=== PATIENT | female | born 2005 | race Caucasian/White ===

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

== ENCOUNTER 2023-01-13 16:55 | Emergency (ER) | payer OTHER, SELFPAY ==
--- NOTE | 2023-01-13 17:00 | ED.URI ---
HPI - URI/Sore Throat General Chief Complaint: Upper Respiratory Infection Stated Complaint: soree throat Time Seen by Provider: 01/13/23 17:35 Source: patient and RN notes reviewed Mode of arrival: ambulatory Limitations: no limitations History of Present Illness HPI Narrative: 17-year-old female presents with concern for sore throat, left ear pain, left wisdom tooth pain. She reports symptoms for approximately 1 week, she has been using salt water gargles and taking ibuprofen. She reports she has an appointment with her dentist to evaluate her wisdom teeth. She reports she has purulent drainage around her left lower wisdom tooth MD elicited complaint: cough and sore throat Related Data Home Medications Medication Instructions Recorded Confirmed levonorgestrel-ethinyl estradiol 1 tablet PO DAILY 01/13/23 01/13/23 0.1 mg-20 mcg tablet (Vienva) magnesium oxide 400 mg (241.3 mg 400 mg PO DAILY 01/13/23 01/13/23 magnesium) tablet pantoprazole 40 mg tablet,delayed 40 mg PO DAILY 01/13/23 01/13/23 release Allergies Allergy/AdvReac Type Severity Reaction Status Date / Time Penicillins Allergy Mild Hives / Verified 01/13/23 17:05 Red Face Review of Systems Review of Systems: CONSTITUTIONAL: Denies malaise, chills, sweats, or fever. EYES: Denies visual changes, redness, or discharge. ENT: Denies rhinorrhea, congestion, sinus pain. Reports left lower dental pain, otalgia and sore throat. CARDIOVASCULAR: Denies chest pain, palpitations, or edema. RESPIRATORY: Denies cough. Denies dyspnea. GASTROINTESTINAL: Denies abdominal pain, nausea, vomiting, diarrhea SKIN: Denies rash or itching. MUSCULOSKELETAL: Denies myalgia. NEUROLOGIC: Denies headache. 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 There is no relevant family history pertinent to the presenting complaint Exam Narrative: GENERAL: Well-appearing, well-nourished, and in no acute distress. HEAD: Normocephalic EYES: PERRLA, conjunctivae clear ENT: Nares clear, no discharge. Mucous membranes moist. TM pearly lassiter with sharp light reflex bilaterally; no tragal tenderness. Oropharynx not erythematous without lesions. Tonsils not enlarged and without exudate, no drooling, no hoarseness, no trismus, uvula midline. gums surrounding tooth 17 erythematous, edematous with purulent drainage noted, no jaw tenderness. NECK: Supple. No lymphadenopathy CHEST: Clear to auscultation, breath sounds equal. No wheezing, rhonchi, rales, or stridor. No respiratory distress, speaks in full sentences. HEART: Regular rate and rhythm. No murmur heard. SKIN: Warm, dry, no rash. NEURO: Alert and oriented x3. PSYCH: Normal mood and affect Course Course Emergency Course: Patient is aware of diagnosis, understands and agrees to treatment plan. Anticipatory guidance given. Patient agrees to follow-up as directed and is aware of reasons to seek care at t
[2023-01-13 17:02] VITALS: BP 125/46; PULSE 93; RESP 20; TEMP 36.8; O2SAT 100
[2023-01-13 17:06] VITALS: BP 125/46; PULSE 93; RESP 20; TEMP 36.8; O2SAT 100
== END 2023-01-13 17:49 | disposition home or self-care (01) ==
PROVIDERS: Emergency Provider Nurse Practitioner; PCP Family Medicine
DX: K04.7 Periapical abscess without sinus (principal); J45.909 Unspecified asthma, uncomplicated
CPT/HCPCS: 87081; 87880; 99213; G0463

== ENCOUNTER 2023-05-12 23:42 | Emergency (ER) | payer OTHER, SELFPAY ==
--- NOTE | ~2023-05-12 | XR_ITS ---
Portable chest x-ray Comparison: 11/12/2022 Clinical History: Chest pain Findings: Lungs are clear, without focal consolidation or pleural effusion. Cardiomediastinal silho uette is stable. Bones and soft tissues are unremarkable. Impression: Normal chest. Reviewed, dictated and finalized at [facility]. Impression: Normal chest.
[2023-05-12 23:45] VITALS: BP 141/67; PULSE 110; RESP 16; TEMP 36.4; O2SAT 100
--- NOTE | 2023-05-12 23:49 | ECG_ITS ---
Measurements Intervals [place] Rate: 103 P: 19 WV: 136 QRS: 67 QRSD: 97 T: 50 QT: 326 QTc: 428 Interpretive Statements SINUS TACHYCARDIA INCOMPLETE RIGHT BUNDLE BRANCH BLOCK MINIMAL Q WAVES- ANTEROLAT/INF LEADS BORDERLINE ECG COMPARED TO ECG 11/12/2022 18:51:03 SINUS TACHYCARDIA NOW PRESENT Electronically Signed On 05-13-2023 7:42:18 CDT by Syed Cullen D.O.
[2023-05-13 01:06] VITALS: BP 137/69; PULSE 88
--- NOTE | 2023-05-13 01:10 | ED.GENADULT ---
HPI - General Adult General Chief complaint: Arrhythmia/Palpitations Stated complaint: palpitaions Time Seen by Provider: 05/13/23 00:39 History of Present Illness HPI narrative: Patient 18-year-old female who presents the emergency department with chief complaint of palpitations and chest pain. The patient reports that she has been having episodes of palpitations and lightheadedness and feels as though her heart rate jumps up into the 1 teens 120s and sometimes in the 130s the patient states that she gets lightheaded and is also had some episodes of chest pain with this the patient reports she has seen her primary care provider has been referred to cardiology and they are planning on referring her to electrophysiology to evaluate for possible POTS patient reports that today she was feeling lightheaded and noticed that her heart rate at times was jumping up into the 120s and 140s the patient states that she became concerned when she had some discomfort in her chest with this and decided to come to the emergency department for evaluation patient reports no heavy vaginal bleeding denies vomiting or diarrhea patient reports that she does not believe that she is dehydrated as she drinks a fair amount of water patient reports that she is having no abdominal pain Related Data Home Medications Medication Instructions Recorded Confirmed levonorgestrel-ethinyl estradiol 1 tablet PO DAILY 01/13/23 02/14/23 0.1 mg-20 mcg tablet (Vienva) magnesium oxide 400 mg (241.3 mg 400 mg PO DAILY 01/13/23 02/14/23 magnesium) tablet pantoprazole 40 mg tablet,delayed 40 mg PO DAILY 01/13/23 02/14/23 release Allergies Allergy/AdvReac Type Severity Reaction Status Date / Time Penicillins Allergy Mild Hives / Verified 05/13/23 00:37 Red Face Review of Systems Review of Systems: A 10 system review of systems was completed on the patient and is negative except for what is stated in the HPI. Nursing and ancillary documentation was reviewed. 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 HEAD: Normocephalic, atraumatic. EYES: PERRLA and EOMI. ENT: Nares clear, no rhinorrhea or epistaxis. Mucous membranes moist. NECK: Supple. CHEST: Clear to auscultation. No respiratory distress. HEART: Regular rate and rhythm. No murmur heard. Normal peripheral pulses. ABDOMEN: Soft, nontender, nondistended, normal active bowel sounds. EXTREMITIES: Normal range of motion. No edema. SKIN: Warm, dry, no rash. NEURO: No focal deficits. Alert and oriented x3. PSYCH: Normal mood and affect. Course Vital Signs Vital signs: Vital Signs Temperature 36.4 C 05/12/23 23:45 Pulse Rate 110 H 05/12/23 23:45 Respiratory Rate 16 05/12/23 23:45 Blood Pressure 141/67 H 05/12/23 23:45 Pulse Oximetry 100 05/12/23 23:45 Oxygen Delivery Room Air 05/12/23 23:45 Temperature 36.4 C 05/12/23 23:45 Pulse Rate 81 05/13
[2023-05-13 01:57] LABS: Appearance Urine Cloudy (Clear); Bacteria Urine Rare /hpf; Bilirubin Urine Negative (Negative); Blood Urine Negative (Negative); Color Urine Yellow (Yellow); Glucose Urine UA Negative (Negative); Ketones Urine Negative (Negative); Leukocyte Esterase Ur Negative LEU/UL (Negative); Nitrate Urine Negative (Negative); Non Pathogenic Casts 0-2; Protein Urine Negative (Negative); RBC Urine 0-2 /hpf (0-2); Specific Grav Ur 1.015 (1.001-1.035); Squamous Epithelial Cell Urine None seen /hpf (Few); Urobilinogen Urine 0.2 mg/dL (<2.0); WBC Urine 0-5 /hpf; pH Urine 7.5 (5.0-9.0)
[2023-05-13] MEDS: SODIUM CHLORIDE 0.9% IV 1,000 ML 999 ML IV CONT (02:00)
[2023-05-13 02:04] LABS: INR 0.9; Prothrombin Time 12.5 Seconds (11.1-14.7)
[2023-05-13 02:07] VITALS: BP 139/71; PULSE 89; RESP 16; O2SAT 100
[2023-05-13 02:07] LABS: Amphetamine Screen Urine Negative (Negative); Barbiturate Screen Urine Negative (Negative); Benzodiazepines Screen Urine Negative (Negative); Cannabinoid Screen Urine Negative (Negative); Cocaine Screen Urine Negative (Negative); Methadone Screen Urine Negative (Negative); Opiate Screen Urine Negative (Negative); Phencyclidine Screen Urine Negative (Negative)
[2023-05-13 02:11] LABS: Add Urine Microscopic? YES
[2023-05-13 02:12] LABS: Basophils Absolute Auto 0.1 K/mm3 (0.0-0.1); Basophils Percent Auto 0.4 % (0.2-1.2); Eosinophils Absolute Auto 0.3 K/mm3 (0-0.3); Eosinophils Percent Auto 2.9 % (0-4.4); Hematocrit 39.5 % (37.0-47.0); Hemoglobin 12.8 g/dL (12.0-15.0); Immature Granulocyte Absolute 0.03 K/mm3 (0.00-0.031); Immature Granulocyte Percent A 0.3 % (0-0.5); Lymphocytes Absolute Auto 3.17 K/mm3 (0.9-3.2); Lymphocytes Percent Auto 27.8 % (18.3-44.2); Mean Corpuscular HGB Conc 32.4 g/dl (32-36); Mean Corpuscular Hemoglobin 28.8 pg (26-34); Mean Corpuscular Volume 88.8 fl (80-100); Mean Platelet Volume 10.6 fl (7.4-10.4); Monocytes Absolute Auto 0.9 K/mm3 (0.1-0.6); Monocytes Percent Auto 7.8 % (2.6-8.5); Neutrophils Absolute Auto 6.9 K/mm3 (1.3-6.7); Neutrophils Percent Auto 60.8 % (45.5-73.1); Platelet Count Result 320 k/mm3 (150-375); Red Blood Count 4.45 M/mm3 (4.2-5.4); Red Cell Distribution Width 13.1 % (11.5-14.5); White Blood Count 11.4 K/mm3 (4.5-10.0)
[2023-05-13 02:17] LABS: Partial Thromboplastin Time 24.4 SECONDS (22.3-36.8)
[2023-05-13 02:22] LABS: Lactic Acid Reflex 0.8 mmol/L (0.7-2.0)
[2023-05-13 02:23] VITALS: PULSE 93; RESP 21; O2SAT 100
[2023-05-13 02:29] LABS: Alanine Aminotransferase 21 U/L (6-35); Albumin Level 4.4 g/dL (3.5-5.1); Alkaline Phosphatase 78 U/L (38-126); Anion Gap 6 mmol/L (8-16); Aspartate Amino Transferase 27 U/L (14-36); Bilirubin,Total 0.6 mg/dL (0.2-1.3); Blood Urea Nitrogen 13 mg/dL (7-17); Calcium 9.1 mg/dL (8.4-10.2); Carbon Dioxide 27 mmol/L (22-30); Chloride 103 mmol/L (98-107); Estimated CRCL calculation 146 ml/min; Estimated Glomerular Filt Rate > 60; Glucose 96 mg/dL (65-110); Magnesium 1.9 mg/dL (1.6-2.3); Potassium 4.1 mmol/L (3.4-5.0); Sodium 136 mmol/L (137-145)
[2023-05-13 02:32] LABS: Beta HCG Quantitative < 2.39 mIU/ML
[2023-05-13 02:33] LABS: Troponin I < 0.012 ng/mL (0.000-0.034)
[2023-05-13 02:39] VITALS: BP 141/74; PULSE 80
[2023-05-13 02:41] VITALS: BP 147/70; PULSE 81
[2023-05-13 03:48] VITALS: BP 132/89; PULSE 94; RESP 22; TEMP 36.7; O2SAT 100
== END 2023-05-13 03:49 | disposition home or self-care (01) ==
PROVIDERS: Emergency Provider Emergency Medicine; PCP Family Medicine
DX: R07.89 Other chest pain (principal); R00.2 Palpitations; J45.909 Unspecified asthma, uncomplicated; R00.0 Tachycardia, unspecified; I45.10 Unspecified right bundle-branch block
CPT/HCPCS: 36415; 71045; 80053; 80307; 81001; 83605; 83735; 84484; 84702; 85025; 85610; 85730; 93005; 96360; 99284; J7030

== ENCOUNTER 2023-05-25 10:50 | Outpatient (CLI) | payer OTHER, SELFPAY ==
[2023-05-25 11:07] LABS: Basophils Absolute Auto 0.1 K/mm3 (0.0-0.1); Basophils Percent Auto 0.6 % (0.2-1.2); Eosinophils Absolute Auto 0.2 K/mm3 (0-0.3); Hematocrit 39.7 % (37.0-47.0); Hemoglobin 12.7 g/dL (12.0-15.0); Immature Granulocyte Absolute 0.02 K/mm3 (0.00-0.031); Immature Granulocyte Percent A 0.2 % (0-0.5); Lymphocytes Absolute Auto 2.11 K/mm3 (0.9-3.2); Lymphocytes Percent Auto 24.6 % (18.3-44.2); Mean Corpuscular Hemoglobin 28.8 pg (26-34); Mean Platelet Volume 10.4 fl (7.4-10.4); Monocytes Absolute Auto 0.6 K/mm3 (0.1-0.6); Monocytes Percent Auto 7.2 % (2.6-8.5); Neutrophils Absolute Auto 5.6 K/mm3 (1.3-6.7); Neutrophils Percent Auto 65.4 % (45.5-73.1); Platelet Count Result 285 k/mm3 (150-375); Red Blood Count 4.41 M/mm3 (4.2-5.4); Red Cell Distribution Width 12.6 % (11.5-14.5); White Blood Count 8.6 K/mm3 (4.5-10.0)
[2023-05-25 15:39] LABS: Potassium 3.9 mmol/L (3.4-5.0)
[2023-05-25 15:44] LABS: Alanine Aminotransferase 20 U/L (6-35); Albumin Level 4.6 g/dL (3.5-5.1); Alkaline Phosphatase 81 U/L (38-126); Anion Gap 8 mmol/L (8-16); Aspartate Amino Transferase 20 U/L (14-36); Bilirubin,Total 0.3 mg/dL (0.2-1.3); Blood Urea Nitrogen 8 mg/dL (7-17); CRP 0.8 mg/dL (<1.0); Calcium 9.1 mg/dL (8.4-10.2); Carbon Dioxide 24 mmol/L (22-30); Chloride 102 mmol/L (98-107); Estimated Glomerular Filt Rate > 60; Glucose 89 mg/dL (65-110); Sodium 134 mmol/L (137-145)
[2023-05-25 16:40] LABS: Erythrocyte Sedimentation Rate 15 mm/hr (0-20)
== END 2023-05-25 10:51 | disposition home or self-care (01) ==
LOC: ANHLAB 10:54
PROVIDERS: PCP Family Medicine; Visit Provider Internal Medicine Hematology & Oncology
DX: D72.829 Elevated white blood cell count, unspecified (principal)
CPT/HCPCS: 36415; 80053; 85025; 85652; 86140

== ENCOUNTER 2023-06-03 14:14 | Outpatient (CLI) | payer OTHER, SELFPAY | END 2023-06-03 14:15 | disposition home or self-care (01) | LOC: ANHLAB 14:16 | PROVIDERS: PCP Family Medicine; Visit Provider Internal Medicine Hematology & Oncology | DX: D72.829 Elevated white blood cell count, unspecified (principal) | CPT/HCPCS: 88184 ==

== ENCOUNTER 2023-12-07 15:05 | Emergency (ER) | payer OTHER, SELFPAY ==
--- NOTE | ~2023-12-07 | XR_ITS ---
EXAMINATION: XR ankle RT min 3V DATE: 12/07/2023 15:27 INDICATION: Right ankle injury TECHNIQUE: Anteroposterior, oblique, mortise, and lateral views of the right ankle were obtained. COMPARISON: None. FINDINGS: Alignment is normal. No fracture. Joint spaces are well maintained. No ankle joint effusion. The so ft tissues are unremarkable. IMPRESSION: 1. Negative right ankle radiographs. Reviewed, dictated and finalized at location A. S TRANSFER CLERK
[2023-12-07 15:06] VITALS: BP 140/65; PULSE 112; RESP 16; TEMP 37; O2SAT 100
--- NOTE | 2023-12-07 16:23 | ED.LOWEXIN ---
HPI - Extremity Injury (Lower) General Chief Complaint: Extremity Injury, Lower Stated Complaint: right ankle injury Time Seen by Provider: 12/07/23 15:55 History of Present Illness HPI Narrative: Patient is a 18-year-old female who presents ER with right ankle pain. Lateral aspect. Suffered inversion injury while slipping down some stairs. She felt and heard a pop. She has been able to bear weight. No numbness or tingling. Related Data Home Medications Medication Instructions Recorded Confirmed magnesium oxide 400 mg (241.3 mg 400 mg PO DAILY 01/13/23 11/29/23 magnesium) tablet pantoprazole 40 mg tablet,delayed 40 mg PO DAILY 01/13/23 11/29/23 release etonogestrel 68 mg subdermal 1 implant subdermal ONCE 06/23/23 11/29/23 implant (Nexplanon) Allergies Allergy/AdvReac Type Severity Reaction Status Date / Time Penicillins Allergy Mild Hives / Verified 12/07/23 15:53 Red Face Review of Systems Constitutional: Constitutional: Reports no additional constitutional complaints Musculoskeletal: Musculoskeletal: Denies back pain, Reports arthralgias and Reports joint swelling Integumentary/Breasts: Skin/Breast: Reports system reviewed and no additional complaints, except as docu Neurologic: Reports system reviewed and no additional complaints, except as documented [facility] Past Medical History Medical History Asthma Confirm cardiac activity, ultrasound Nexplanon insertion 06/23/2023 Vaginal irritation Surgical History Surgical History No pertinent past surgical history Family History Family History Mother Anemia Other Cerebrovascular accident No acute medical problems Social History Social History (Updated 11/29/23 @ 15:43 by Shraddha Monterroso MA) Smoking status: Never smoker Alcohol intake: never Substance use: never Substance use type: does not use Do You Feel Safe in your Home?: Yes Lack of Transportation: No Lack of Food: Never True Current Housing: I Have Housing Concerned About Future Housing: No Difficulty Paying Gas/Electric Bills: No Difficulty Paying for Meds: No Currently Unemployed: No Education: High School Diploma/GED Difficulty w/ Childcare or Family Care: No Living arrangements: with family Occupation/Education: occupation 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 HEAD: Normocephalic, atraumatic. ENT: Mucous membranes moist. HEART: Regular rate and rhythm. Normal peripheral pulses.. EXTREMITIES: Normal range of motion. No edema. Mild tenderness over the ATFL of the right ankle. There is swelling and bruising to this area as well. SKIN: Warm, dry, no rash. NEURO: Alert and oriented x3. PSYCH: Normal mood and affect. Course Course Emergency Course: Discussed imaging results. Discharged with Esau wrap and crutches. Discussed rest/ice/compression /elevation. Weightbearing as tolerated Vital Signs Vital signs: Vital Signs Temperature 98.6 F 12/07/23 15:06 Pulse Rate 112 H 12/07/23 15:06 Respiratory Rate 16 12/07/23 15:06 Blood Pressure 140/65 12/07/23 15:06 Pulse Oximetry 100 12/07/23 15:06 Temperature 98.6 F 12/07/23 15:06 Pulse Rate 112 H 12/07/23 15:06 Respiratory Rate 16 12/07/23 15:06 Blood Pressure 140/65 12/07/23 15:06 Pulse Oximetry 100 12/07/23 15:06 Discharge Plan Discharge Clinical Impression: Ankle sprain Patient Disposition: Home, Self-Care Condition: Stable Instructions: Ankle Sprain (ED), P.R.I.C.E. Treatment (ED) Additi
== END 2023-12-07 16:36 | disposition home or self-care (01) ==
PROVIDERS: Emergency Provider Emergency Medicine; PCP Family Medicine
DX: S93.401A Sprain of unspecified ligament of right ankle, initial encounter (principal); J45.909 Unspecified asthma, uncomplicated; W18.49XA Other slipping, tripping and stumbling without falling, initial encounter
CPT/HCPCS: 73610; 99283

== ENCOUNTER 2023-12-15 12:45 | Emergency (ER) | payer OTHER, SELFPAY ==
[2023-12-15 12:55] VITALS: BP 143/62; PULSE 103; RESP 18; TEMP 36.8; O2SAT 98
--- NOTE | 2023-12-15 13:19 | ED.LOWEXIN ---
HPI - Extremity Injury (Lower) General Chief Complaint: Extremity Injury, Lower Stated Complaint: Right Ankle Pain Time Seen by Provider: 12/15/23 13:12 Source: patient, RN notes reviewed and old records reviewed Mode of arrival: other (With crutches) Limitations: no limitations History of Present Illness HPI Narrative: Patient presents today complaining of right ankle pain. She has sprained her ankle on 12/07/2023 and was subsequently seen in the ER at [facility]. Her x-rays were negative for fracture and she was instructed to follow-up with her PCP in 1 week. She has been using crutches since that time and very occasionally taking ibuprofen. She was supposed to have an appointment with a PCP today, but they called this morning canceled her appointment and did not reschedule her. Related Data Home Medications Medication Instructions Recorded Confirmed escitalopram oxalate 10 mg tablet 10 mg DIRECTED 12/15/23 12/15/23 metoprolol succinate 25 mg 25 mg PO DIRECTED 12/15/23 12/15/23 tablet,extended release 24 hr norethindrone 1 mg-ethinyl 1 tablet PO DAILY 12/15/23 12/15/23 estradiol 20 mcg (24)-iron 75 mg (4) tablet () Allergies Allergy/AdvReac Type Severity Reaction Status Date / Time Penicillins Allergy Mild Hives / Verified 12/07/23 15:53 Red Face Review of Systems Review of Systems: CONSTITUTIONAL: Denies body aches, fever, chills, or sweats. EYES: Denies visual changes, redness, or discharge. ENT: Denies rhinorrhea, congestion, sore throat, or otalgia. CARDIOVASCULAR: Denies chest pain, palpitations, or edema. RESPIRATORY: Denies cough or dyspnea. GASTROINTESTINAL: Denies abdominal pain, nausea, vomiting, or diarrhea. GENITOURINARY: Denies dysuria or hematuria. SKIN: Denies rash, itching, or wounds. MUSCULOSKELETAL: Denies back pain, or myalgia.+ right ankle pain NEUROLOGIC: Denies headache, numbness, tingling, or weakness. PSYCH: Denies depression or anxiety. [facility] Past Medical History Medical History Asthma Confirm cardiac activity, ultrasound Nexplanon insertion 06/23/2023 Vaginal irritation Surgical History Surgical History No pertinent past surgical history Family History Family History Mother Anemia Other Cerebrovascular accident No acute medical problems Social History Social History Smoking status: Never smoker Alcohol intake: never Substance use: never Substance use type: does not use Do You Feel Safe in your Home?: Yes Lack of Transportation: No Lack of Food: Never True Current Housing: I Have Housing Concerned About Future Housing: No Difficulty Paying Gas/Electric Bills: No Difficulty Paying for Meds: No Currently Unemployed: No Education: High School Diploma/GED Difficulty w/ Childcare or Family Care: No Living arrangements: with family Occupation/Education: occupation 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 Please see nursing chart for further information. There is no relevant family history pertinent to the presenting complaint Exam Narrative: GENERAL: Well-appearing, well-nourished, and in no acute distress. HEAD: Normocephalic, atraumatic. EYES: EOMI. No redness or drainage. Conjunctivae normal. ENT: Mucous membranes pink and moist. NECK: Normal AROM. CHEST: No respiratory distress. EXTREMITIES: Right ankle: Mi
== END 2023-12-15 13:29 | disposition home or self-care (01) ==
PROVIDERS: Emergency Provider Nurse Practitioner; PCP Family Medicine
DX: S93.401D Sprain of unspecified ligament of right ankle, subsequent encounter (principal); X58.XXXD Exposure to other specified factors, subsequent encounter; J45.909 Unspecified asthma, uncomplicated
CPT/HCPCS: 99212; G0463

== ENCOUNTER 2024-05-29 11:27 | Outpatient (CLI) | payer OTHER, SELFPAY ==
[2024-05-29 11:51] LABS: Basophils Absolute Auto 0.1 K/mm3 (0.0-0.1); Basophils Percent Auto 0.5 % (0.2-1.2); Eosinophils Absolute Auto 0.4 K/mm3 (0-0.3); Eosinophils Percent Auto 3.4 % (0-4.4); Hematocrit 38.5 % (37.0-47.0); Hemoglobin 12.7 g/dL (12.0-15.0); Immature Granulocyte Absolute 0.04 K/mm3 (0.00-0.031); Immature Granulocyte Percent A 0.4 % (0-0.5); Lymphocytes Absolute Auto 2.22 K/mm3 (0.9-3.2); Lymphocytes Percent Auto 19.9 % (18.3-44.2); Mean Corpuscular Hemoglobin 29.6 pg (26-34); Mean Corpuscular Volume 89.7 fl (80-100); Mean Platelet Volume 10.1 fl (7.4-10.4); Monocytes Absolute Auto 0.8 K/mm3 (0.1-0.6); Monocytes Percent Auto 6.7 % (2.6-8.5); Neutrophils Absolute Auto 7.7 K/mm3 (1.3-6.7); Neutrophils Percent Auto 69.1 % (45.5-73.1); Platelet Count Result 287 k/mm3 (150-375); Red Blood Count 4.29 M/mm3 (4.2-5.4); White Blood Count 11.1 K/mm3 (4.5-10.0)
[2024-05-29 12:06] LABS: Alanine Aminotransferase 16 U/L (6-35); Albumin Level 4.1 g/dL (3.5-5.1); Alkaline Phosphatase 72 U/L (38-126); Anion Gap 8 mmol/L (4-12); Aspartate Amino Transferase 19 U/L (14-36); Bilirubin,Total 0.2 mg/dL (0.2-1.3); Blood Urea Nitrogen 9 mg/dL (7-17); Calcium 8.7 mg/dL (8.4-10.2); Carbon Dioxide 27 mmol/L (22-30); Chloride 102 mmol/L (98-107); Estimated Glomerular Filt Rate > 60; Glucose 105 mg/dL (65-110); Potassium 3.8 mmol/L (3.4-5.0); Sodium 137 mmol/L (137-145)
[2024-05-29 12:28] LABS: Free T4 Free Thyroxine 1.02 ng/mL (0.78-2.19)
[2024-05-29 12:36] LABS: Total Triiodothyronine (T3) 1.43 NG/ML (0.97-1.69)
[2024-05-31 08:09] LABS: Thyroid Peroxidase Antibodies <1 IU/mL (<9)
== END 2024-05-29 11:28 | disposition home or self-care (01) ==
LOC: ANHLAB 11:30
PROVIDERS: PCP Family Medicine; Visit Provider Family Medicine
DX: Z00.00 Encounter for general adult medical examination without abnormal findings (principal); E07.9 Disorder of thyroid, unspecified; F41.1 Generalized anxiety disorder
CPT/HCPCS: 36415; 80053; 84439; 84443; 84480; 85025; 86376

== ENCOUNTER 2024-06-29 18:38 | Emergency (ER) | payer OTHER, SELFPAY ==
[2024-06-29 18:46] VITALS: BP 124/50; PULSE 82; RESP 19; TEMP 36.8; O2SAT 100
--- NOTE | 2024-06-29 19:00 | ED.URI ---
HPI - URI/Sore Throat General Chief Complaint: Upper Respiratory Infection Stated Complaint: Sinus Time Seen by Provider: 06/29/24 19:01 Source: patient, RN notes reviewed and old records reviewed Mode of arrival: ambulatory Limitations: no limitations History of Present Illness HPI Narrative: 19-year-old female presents to the [facility] with a 4 day history of sinus congestion, feeling feverish, sore throat. No treatment prior to arrival requesting a work note. Concern for flu, COVID and strep Treatments prior to arrival: none Related Data Home Medications Medication Instructions Recorded Confirmed escitalopram oxalate 10 mg tablet 10 mg DIRECTED 12/15/23 06/29/24 clonazepam 1 mg tablet 1 mg PO DAILY 05/29/24 06/29/24 norethindrone 1 mg-ethinyl 1 tablet PO DAILY 05/29/24 06/29/24 estradiol 20 mcg (24)-iron 75 mg (4) tablet (Aurovela 24 Fe) metoprolol succinate 25 mg 25 mg PO DAILY 06/29/24 06/29/24 tablet,extended release 24 hr Allergies Allergy/AdvReac Type Severity Reaction Status Date / Time Penicillins Allergy Mild Hives / Verified 06/29/24 18:45 Red Face Review of Systems Review of Systems: All systems reviewed & are unremarkable except as noted in HPI and below Constitutional: Constitutional: Reports no additional constitutional complaints Eyes: Eyes: Reports no additional eye complaints ENT: Reports as per HPI Cardiovascular: Cardiovascular: Reports no additional cardiovascular complaints, Denies chest pain and Denies dyspnea Respiratory: Respiratory: Reports no additional respiratory complaints, Denies chest congestion, Denies cough and Denies dyspnea Gastrointestinal: Gastrointestinal: Reports no additional gastrointestinal complaints, Denies abdominal pain, Denies nausea and Denies vomiting Musculoskeletal: Musculoskeletal: Reports no additional musculoskeletal complaints Integumentary/Breasts: Skin/Breast: Reports system reviewed and no additional complaints, except as docu Neurologic: Reports system reviewed and no additional complaints, except as documented Psychiatric: Psychiatric: Reports no additional psychiatric complaints Allergic/Immunologic: Allergic/Immunologic: Reports no additional allergic/immunologic complaints PMFSH Past Medical History Medical History Asthma Confirm cardiac activity, ultrasound Nexplanon insertion 06/23/2023 Vaginal irritation Surgical History Surgical History No pertinent past surgical history Family History Family History Mother Anemia Other Cerebrovascular accident No acute medical problems Social History Social History Social History: Single Smoking status: Never smoker Second hand tobacco smoke exposure: No Alcohol intake: current Alcohol use details: Occasionally Substance use: never Substance use type: does not use Do You Feel Safe in your Home?: Yes Lack of Transportation: No Lack of Food: Never True Current Housing: I Have Housing Concerned About Future Housing: No Difficulty Paying Gas/Electric Bills: No Difficulty Paying for Meds: No Currently Unemployed: No Education: High School Diploma/GED Difficulty w/ Childcare or Family Care: No Living arrangements: with family Occupation/Education: occupation 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 There is no relevant family history pertinent to the patient complaint. Exam Const: General: cooperative, heal
[2024-06-29 19:35] LABS: EDCOVIDSCREEN Negative (Negative); EDINFLUASCREEN Negative (Negative); EDINFLUBSCREEN Negative (Negative); EDSTREPNEGPOS1 Negative (Negative)
== END 2024-06-29 19:30 | disposition home or self-care (01) ==
PROVIDERS: Emergency Provider Nurse Practitioner; PCP Family Medicine
DX: J06.9 Acute upper respiratory infection, unspecified (principal); Z20.822 Contact with and (suspected) exposure to COVID-19
CPT/HCPCS: 87081; 87635; 87804; 87880; 99213; G0463

== ENCOUNTER 2025-02-06 15:11 | Emergency (ER) | payer SELFPAY ==
[2025-02-06] VITALS (12 sets, daily range): BP systolic 116–139; BP diastolic 49–67; PULSE 70–88; RESP 13–18; TEMP 36.2; O2SAT 99–100
--- NOTE | ~2025-02-06 | XR_ITS ---
CHEST RADIOGRAPH CLINICAL HISTORY: pre-syncope, dyspnea . COMPARISON: 11/12/2022 TECHNIQUE: Single portable view of the chest. FINDINGS The cardiomediastinal silhouette is unremarkable. The lungs are clear. Visualized osseous structures and soft tissues are unremarkable. IMPRESSION: No focal infiltrate or effusion. Reviewed, dictated and finalized at location A.
--- NOTE | 2025-02-06 16:27 | ECG_ITS ---
Test Date: 2025-02-06 16:40:58 Measurements Intervals Korbel Rate: 76 P: 8 GA: 141 QRS: 68 QRSD: 97 T: 43 QT: 371 QTc: 419 Interpretive Statements SINUS RHYTHM INCOMPLETE RIGHT BUNDLE BRANCH BLOCK MINIMAL Q WAVES- ANTEROLAT/INF LEADS BASELINE WANDER- V3-V6 BORDERLINE ECG No previous ECG available for comparison Electronically Signed On 02-06-2025 17:19:08 CDT by Syed Cullen D.O.
--- OUTSIDE RECORDS SUMMARY | 2025-02-06 17:09 | XMS_ITS | CONTINUITY OF CARE DOCUMENT ---
Author Name wale echevarria Address Unknown Organization [facility] Address [address] [place] [address] Phone [phone] Care Team Providers Care Therapeutic Radiologist Name Role Phone Abdon VAZQUEZ, Chris Unavailable Blayne Diaz MD Unavailable [phone] INSURANCE PROVIDERS Payer name Policy type / Coverage type Rosa red green party ID [facility] Medicaid [id number]
--- OUTSIDE RECORDS SUMMARY | 2025-02-06 17:09 | XMS_ITS | Encounter Summary ---
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 Gender Identity Not on file Sexual Orientation Not on file documented as of this encounter Plan of Treatment Not on file documented as of this encounter Procedures Procedure Name Priority Date/Time Associated Diagnosis Comments SCAN - LABS 08/31/2021 CARDIOLOGY DOCUMENT SCAN 08/31/2021 documented in this encounter Results * SCAN - LABS (08/31/2021) us Provider Scanning Final Result * CARDIOLOGY DOCUMENT SCAN (08/31/2021) Anatomical Region Laterality Modality Other us Provider Scanning CV CARDIAC SERVICES PROCEDURES Final Result documented in this encounter Visit Diagnoses Not on filedocumented in this encounter Care Teams Manager Of School Relationship Specialty Start Date End Date Raffy Singh MD [address] [place] [id number] PCP - General Pediatrics 12/25/21 documented as of this encounter
--- OUTSIDE RECORDS SUMMARY | 2025-02-06 17:10 | XMS_ITS | Clinical Summary ---
Author Organization [facility] [employer] Address [address] [place] [address] Care Team Providers Care Adjunct Lecturer Name Role Phone Raffy Singh MD Primary Care Provider [phone] Raffy Singh MD Unavailable Source Comments [facility] [employer],non-owned Affiliates and Associated Physician Practices is amultiple site organization consisting of ambulatory clinics and hospital sitesin [place], [place], [place] and [place]. This disclosure is being madepursuant to the Care Everywhere program and may not contain all information available regarding this patient. Last updated 18.[facility] [employer] Allergies Active Allergy Reactions Criticality Noted Date Comments Penicillins 12/05/2012 Penicillins Rash Medium 12/10/2016 Medications * Be aware that medications may not be up to date on this document. Alwaysverify current medications with the patient. fluticasone hfa 110 (FLOVENT HFA) 110 MCG/ACT inhaler Inhale 2 Puffs by mouth 2 times daily Active ALBUTEROL IN Active cetirizine (ZYRTEC ALLERGY) 10 MG tablet Take 10 mg by mouth once daily Active predniSONE (DELTASONE) 20 MG tabletIndication s:Acute bronchitis, unspecified organism Take 1 Tab by mouth 2 times daily 14 Tab 12/01/2016 Active predniSONE (DELTASONE) 20 MG tablet Take 1 Tab by mouth 2 times daily 14 Tab 12/10/2016 Active ALBUTEROL IN Active Social History Tobacco Use Types Packs/Day Years Used Date Smoking Tobacco: Never Comments Unknown Sex and Gender Information Value Date Recorded Sex Assigned at Not on file Legal Sex Female 5:42 AM 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 Gender Identity Not on file Sexual Orientation Not on file Last Filed Vital Signs Vital Sign Reading Time Taken Comments Blood Pressure 106/62 12/10/2016 9:47 AM 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 ASSOCIATE Pulse 113 12/10/2016 9:47 AM 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 ASSOCIATE Temperature 38.3 C (100.9 F) 12/10/2016 9:47 AM 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 ASSOCIATE Respiratory Rate 17 12/01/2016 7:11 PM 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 ASSOCIATE Oxygen Saturation 97% 12/10/2016 9:47 AM 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 ASSOCIATE Inhaled Oxygen Concentration - - Weight 72.6 kg (160 lb) 12/10/2016 9:47 AM 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 ASSOCIATE Height 165.1 cm (5' 5 ) 12/10/2016 9:47 AM 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 ASSOCIATE Body Mass Index 26.63 12/10/2016 9:47 AM 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 ASSOCIATE Plan of Treatment Health Maintenance Due Date Last Done Comments HIV SCREENING 2018 HPV VACCINE (1 - 3-dose series) 2018 CHLAMYDIA/GONORRHEA SCREENING 2019 MENINGOCOCCAL (Group B) VACC INE SHARED DECISION-MAKING (1 of 2 - Standard) 2019 HEPATITIS C SCREENING 04/27/2021 DTAP/TDAP/TD VACCINES (1 - Tdap) 2022 HEPATITIS B VACCINE (1 of 3 - 19+ 3-dose series) 2022 COVID-19 VACCINE (1 - 2023-2 5 season) 2024 DEPRESSION SCREENING 10/17/2024 INFLUENZA VACCINE (Season Ended) 2025 ZOSTER VACCINE (1 of 2) 2053 HIB VACCINE Aged Out No longer eligi ble based on patient's age to complete this topic MENINGOCOCCAL GROUPS A/C/Y/W VACCINE Aged Out No longer eligible b ased on patient's age to complete this topic PNEUMOCOCCAL VACCINE Aged Out No long er eligible based on patient's age to complete this topic Insurance [facility] [employer] [facility] Care Teams Adjunct Lecturer Relationship Specialty Start Date End Date Raffy Singh MD [address] [place] [address] PCP - General Pediatrics 12/10/16 Raffy Singh MD [address] [place] [address] Pediatrics 12/10/16
--- OUTSIDE RECORDS SUMMARY | 2025-02-06 17:10 | XMS_ITS | Clinical Summary ---
Author Organization [facility] Address [address] [place] [address] Care Team Providers Care Blasting Coal Miner Name Role Phone Raffy Singh MD Primary Care Provider [phone] Allergies Active Allergy Reactions Criticality Noted Date Comments Penicillins Hives,Rash High 12/05/2012 Medications albuterol (PROAIR RESPICLICK) 90 mcg/actuation inhaler Inhale Active magnesium oxide 400 mg magnesium capsule Take 400 mg by mouth daily 30 capsule 11 02/08/2022 Active clonazePAM (KlonoPIN) 0.5 mg tablet Take 1 tablet (0.5 mg total) by mouth daily as needed 05/12/2023 Active Junel Fe 24 1 mg-20 mcg (24)/75 mg (4) per tablet Take 1 tablet by mouth daily 02/14/2023 Active cyanocobalamin (Vitamin B-12) 100 mcg tablet Take 1 tablet (100 mcg total) by mouth daily Active metoprolol XL (TOPROL-XL) 25 mg extended release tablet Take 0.5 tablets (12.5 mg total) by mouth every morning AND 1 tablet (25 mg total) nightly. (Please schedule follow up for future refills). 45 tablet 11/29/2024 Active Active Problems Problem Noted Date Diagnosed Date Postural orthostatic tachycardia syndrome 2022 Family History Medical History Relation Name Comments Asthma Other Family history of asthma - (Added by TW Conv) Diabetes Other Family history of diabetes mellitus - (Added by TW Conv) Heart disease Other Family history of cardiac disorder - (Added by TW Conv) Hypertension Other Family history of hypertension - (Added by TW Conv) Kidney disease Other Family histor y of kidney disease - (Added by TW Conv) Stroke Other Family history of cerebrovascular accident (CVA) - (Added by TW Conv) Relation Name Status Comments Other Social History Tobacco Use Types Packs/Day Years Used Date Smoking Tobacco: Never Tobacco Cessation:Counseling Given: Not Answered Personal Safety Answer Date Recorded Have you ever been in or are you currently in a harmful physical or emotional relationship or is someone making you feel afraid or unsafe? 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 Gender Identity Not on file Sexual Orientation Not on file Obstetrics History Last Filed Vital Signs Vital Sign Reading Time Taken Comments Blood Pressure 129/60 08/22/2023 6:15 PM LOCAL CITY DRIVER Pulse 103 08/22/2023 6:15 PM LOCAL CITY DRIVER Temperature 36.9 C (98.4 F) 08/22/2023 3:30 PM LOCAL CITY DRIVER Respiratory Rate 18 08/22/2023 6:15 PM LOCAL CITY DRIVER Oxygen Saturation 98% 08/22/2023 6:15 PM LOCAL CITY DRIVER Inhaled Oxygen Concentration - - Weight 89.9 kg (198 lb 3.1 oz) 08/22/2023 3:30 P M LOCAL CITY DRIVER Height 167.6 cm (5' 6 ) 08/22/2023 3:30 PM LOCAL CITY DRIVER Body Mass Index 31.99 08/22/2023 3:30 PM LOCAL CITY DRIVER Plan of Treatment Health Maintenance Due Date Last Done Comments Cervical Cancer Screening 2003 Depression Screening 2003 Hepatitis C Screening 2003 Pneumococcal vaccine <65 (1 of 1 - PPSV23) 2009 08/04/2004, 2003, 2003, Additional history exists Meningococcal B Vaccine (2 o f 2 - Bexsero SCDM 2-dose series) 01/11/2021 07/14/2020 Regular Well Visit/Exam 18-64 2021 DTaP/Tdap/Td Vaccine (7 - Td or Tdap) 04/30/2025 04/30/2015, 07/26/2008, 08/04/2004, Additional history exists Influenza Vaccine (Season Ended) 2025 08/09/2018, 07/06/2017, 07/06/2016, Additional history exists Hepatitis B Screening Completed 05/04/2004 , 2003, 2003, Additional history exists Varicella Vaccines Completed 07/26/2008, 08/04/2004 HPV Vaccines Completed 12/29/2015, 07/18, 04/30/2015 Meningococcal Vaccine Completed 07/14/2020, 015 Insurance [facility] Care Teams Blasting Coal Miner Relationship Specialty Start Date End Date Raffy Singh MD [address] [place] [address] (work) PCP - General Pediatrics 12/25/21
--- OUTSIDE RECORDS SUMMARY | 2025-02-06 17:10 | XMS_ITS | Referral Summary ---
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 Gender Identity Not on file Sexual Orientation Not on file Last Filed Vital Signs Vital Sign Reading Time Taken Comments Blood Pressure 129/60 08/22/2023 6:15 PM TABLE WORKER Pulse 103 08/22/2023 6:15 PM TABLE WORKER Temperature 36.9 C (98.4 F) 08/22/2023 3:30 PM TABLE WORKER Respiratory Rate 18 08/22/2023 6:15 PM TABLE WORKER Oxygen Saturation 98% 08/22/2023 6:15 PM TABLE WORKER Inhaled Oxygen Concentration - - Weight 89.9 kg (198 lb 3.1 oz) 08/22/2023 3:30 P M TABLE WORKER Height 167.6 cm (5' 6 ) 08/22/2023 3:30 PM TABLE WORKER Body Mass Index 31.99 08/22/2023 3:30 PM TABLE WORKER Plan of Treatment Not on file Insurance [facility] Care Teams Tool Pusher Relationship Specialty Start Date End Date Raffy Singh MD [address] [place] [id number] PCP - General Pediatrics 12/25/21
--- OUTSIDE RECORDS SUMMARY | 2025-02-06 17:10 | XMS_ITS | Encounter Summary ---
Author Organization [facility] Address [address] [place] [address] Phone Care Team Providers Care Motor Route Carrier Name Role Phone Raffy Singh MD Primary Care Provider [phone] Encounter Details Date Type Department Care Team (Latest Contact Info) Description 05/25/2023 Orders Only [facility] Lili Khanna, [address] [facility] [address] [place], [place] [id number] Social History Tobacco Use Types Packs/Day Years Used Date Smoking Tobacco: Never Comments Unknown Sex and Gender Information Value Date Recorded Sex Assigned at Not on file 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 Gender Identity Not on file Sexual Orientation Not on file documented as of this encounter Plan of Treatment Not on file documented as of this encounter Procedures Procedure Name Priority Date/Time Associated Diagnosis Comments SCAN - LABS 05/25/2023 documented in this encounter Results * SCAN - LABS (05/25/2023) Lili Khanna RN Final Result documented in this encounter Visit Diagnoses Not on filedocumented in this encounter Care Teams Motor Route Carrier Relationship Specialty Start Date End Date Raffy Singh MD [address] [place] [address] PCP - General Pediatrics 12/25/21 documented as of this encounter
--- OUTSIDE RECORDS SUMMARY | 2025-02-06 17:10 | XMS_ITS | Clinical Summary ---
Author Organization [facility] Address [address] [address] Care Team Providers Care Inlayer Silver Name Role Phone Janae Sullivan MD Primary Care Provider + Allergies Active Allergy Reactions Criticality Noted Date Comments Penicillins Hives,Rash High 12/05/2012 Medications albuterol sulfate 90 mcg/actuation metered powder inhaler Take by inhalation. Active clonazePAM (KlonoPIN) 0.5 mg Tablet Take 0.5 mg by mouth. 05/12/2023 Active Norethindrn A-E estradiol-Iron (Junel Fe 24) 1 mg-20 mcg (24)/75 mg (4) tablet Take 1 Tablet by mouth daily. 02/14/2023 Active cyanocobalamin (VITAMIN B-12) 100 mcg tablet Take 100 mcg by mouth daily. Active Active Problems No known active problems Family History Relation Name Status Comments Brother Alive Father Alive Mother Alive Sister Alive Social History Tobacco Use Types Packs/Day Years Used Date Smoking Tobacco: Never Smokeless Tobacco: Never Alcohol Use Standard Drinks/Week Comments Never 0 (1 standard drink = 0.6 oz pur e alcohol) Comments Unknown Sex and Gender Information Value Date Recorded Sex Assigned at Female 05/26/2023 11:34 AM CDT Legal Sex Female 10:50 AM CDT Gender Identity Female 05/26/2023 11:34 AM CDT Sexual Orientation Not on file Last Filed Vital Signs Vital Sign Reading Time Taken Comments Blood Pressure 136/73 05/25/2023 10:03 AM CDT Pulse 90 05/25/2023 10:03 AM CDT Temperature 36.2 C (97.1 F) 05/25/2023 10:03 AM CDT Respiratory Rate 10 05/25/2023 10:03 AM CDT Oxygen Saturation 100% 05/25/2023 10:03 AM CDT Inhaled Oxygen Concentration - - Weight 89.8 kg (198 lb) 05/25/2023 10:03 AM CDT Height 167.6 cm (5' 6 ) 05/25/2023 10:03 AM CDT Body Mass Index 31.96 05/25/2023 10:03 AM CDT Plan of Treatment Health Maintenance Due Date Last Done Comments CHLAMYDIA SCREENING (ANNUAL) 11-24 YEARS 2014 HPV VACCINES (1 - 3-dose series) 2018 DTAP/TDAP/TD VACCINES (1 - Tdap) 2022 HEPATITIS B VACCINES (1 of 3 - 19+ 3-dose series) 04/16 CERVICAL CANCER SCREENING 2024 HPV/Cotest (21-29) 2024 PAP SMEAR 2024 INFLUENZA VACCINE (#1) [address] [place] [address] [place] [address] MEDICAID Care Teams Inlayer Silver Relationship Specialty Start Date End Date Janae Sullivan MD [address] [place] [address] [place] [phone] PCP - General Family Practice 05/25/23
--- OUTSIDE RECORDS SUMMARY | 2025-02-06 17:10 | XMS_ITS | Clinical Summary ---
Author Organization [facility] Address [address] [place] [address] Care Team Providers Care Loan And Credit Manager Name Role Phone Raffy Singh MD Primary Care Provider [phone] Allergies Active Allergy Reactions Criticality Noted Date Comments Penicillin V Hives 08/31/2021 Social History Tobacco Use Types Packs/Day Years Used Date Smoking Tobacco: Never Smokeless Tobacco: Never Alcohol Use Standard Drinks/Week Comments Never 0 (1 standard drink = 0.6 oz pur e alcohol) Comments No Sex and Gender Information Value Date Recorded Sex Assigned at Not on file Legal Sex Female 3:07 AM INTERNET MERCHANT Gender Identity Not on file Sexual Orientation Not on file Last Filed Vital Signs Vital Sign Reading Time Taken Comments Blood Pressure 135/64 09/01/2021 1:34 AM INTERNET MERCHANT Pulse 97 09/01/2021 1:34 AM INTERNET MERCHANT Temperature 36.6 C (97.8 F) 08/31/2021 8:45 PM INTERNET MERCHANT Respiratory Rate 18 09/01/2021 1:34 AM INTERNET MERCHANT Oxygen Saturation 99% 09/01/2021 1:34 AM INTERNET MERCHANT Inhaled Oxygen Concentration - - Weight 95.7 kg (211 lb) 08/31/2021 8:45 PM INTERNET MERCHANT Height 167.6 cm (5' 6 ) 08/31/2021 8:45 PM INTERNET MERCHANT Body Mass Index 34.06 08/31/2021 8:45 PM INTERNET MERCHANT Plan of Treatment Health Maintenance Due Date Last Done Comments Cervical Cancer Screening Pap Smear (Age 21 to 29) Every 3 Years 2003 Cervical Cancer Screening 2003 Annual Physical 2006 Meningococcal B Vaccine (2 of 2 - Bexsero SCDM 2-dose series) 01/11/2021 07/14/2020 Hepatitis C 2021 COVID-19 Vaccine (2023- season) 2024 DTaP, Tdap and Td Vaccines (7 - Td or Tdap) 04/30/2025 04/30/2015, 07/26/2008, 08/04/2004, Additional history exists Hepatitis B Vaccines Completed 05/04/2004, 2003, 2003, Additional history exists Pneumococcal Vaccine: Pediatrics (0 to 5 Years) and At-Risk Patients (6 to 49 Years) Aged Out 08/04/2004, 2003, 2003, Additional history exists No longer eligible based on patient's age to complete this topic HPV Vaccines Completed 12/29/2015, 07/18, 04/30/2015 Meningococcal Vaccine Completed 07/14/2020, 015 RSV Immunizations Under 20 Months Aged Out No longer eligible based on patient's age to complete this topic Insurance Care Teams Loan And Credit Manager Relationship Specialty Start Date End Date Raffy Singh MD [address] [place] [phone] PCP - General PEDIATRICS 08/31/21
--- OUTSIDE RECORDS SUMMARY | 2025-02-06 17:10 | XMS_ITS | Data Portability ---
Author Organization [place] [facility], Main Office Address [address] [place] [address] Assessment Encounter Date Assessment Date Assessment LastModified by Organization Details LastModified Time 01/06/2024 01/06/2024 The patient has a right ankle sprain after an inversion type injury. She has pain over the lateral portion no fractures were noted on x-ray. Ankle joint is stable function is excellent. I have advised her to give a little more time we talked about a lace-up ankle brace she wanted to proceed therefore this was fitted in the office today by the staff for her best comfort and support. She will use naproxen b.i.d. 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 I have advised her to watch for slow gradual improvement it has been 1 month she is getting somewhat better just needs to give it more time I believe. [email or web address] Not available 01/06/2024 13:08:00 Plan of Treatment Reminders Order Date Submit Date Provider Last Modified By Organization Details Last Modified Time Details Appointments None recorded. Lab folate, serum 2022 023 [facility] (Lab), [address] [place], [address], 21:16:22 [facility] [address] [place], [address], 3 21:16:25 [facility] w/ auto diff [facility] [address] [facility], [address], 3 20:01:41 TSH, serum or plasma 2022 023 NIKKI Not available 3 21:01:06 magnesium, serum or plasma 2022 023 NIKKI Not available 3 20:56:27 CMP, serum or plasma 2022 023 NIKKI Not available 3 20:56:33 CBC w/ auto diff 2022 023 NIKKI Not available 3 19:36:01 vitamin B12, serum 2022 023 NIKKI Not available 3 21:48:10 folate, serum 2022 023 NIKKI Not available 3 21:48:24 Referral psychiatris t referral [address], [address] [place] [address] Dr, [place], [address], 4 18:02:36 Procedures None recorded. Surgeries None recorded. Imaging None recorded. Medication Orders sertraline 50 mg tablet 2022 023 [facility] #[id number], [address], [place], [place], [id number], 4 11:17:06 clonazepam 1 mg tablet 2022 023 [facility] #[id number], [address], [place], [place], [id number], 4 11:16:37 clonazepam 0.5 mg tablet 2022 023 NIKKI [facility] #[id number], [address], [place], [place], [id number], 3 08:50:05 bisoprolol fumarate 5 mg tablet 2022 023 [email or web address] [facility] #[id number], [address], [place], [place], [id number], 3 13:01:01 buspirone 10 mg tablet 2022 023 [email or web address] [facility] #[id number], [address], [place], [place], [id number], 3 12:53:22 Patient TargetsNo targets recorded. Patient InstructionsNo instructions recorded. Reason for Referral [facility]iatrist [facility] Referring Physician: Janae Sullivan, Family Medicine, Encounter Date: 08/24/2023 Results Created Date Observation Date Name Description Value Unit Range Abnormal Flag Note LastModifiedBy Organization Detail LastModifiedTime 05/12/20 23 05/16/2023 CBC/C OMPLE TE BLD COUNT W/DIF F white blood cells 9.8 x10'3 /uL 4.2-10 .8 Not Available [facility] (Lab) [address] [place], [address], 05/16/2023 20:21:35 05/12/20 23 05/16/2023 CBC/C OMPLE TE BLD COUNT W/DIF F red blood cells 4.88 x10'6 /uL 3.80-5 .20 Not Available [facility] (Lab) [address] [place], [address], 05/16/2023 20:21:35 05/12/20 23 05/16/2023 CBC/C OMPLE TE BLD COUNT W/DIF F hemoglobin 13.9 g/dL 12.0-1 5.6 Not Available [facility] (Lab) [address] [place], [address], 05/16/2023 20:21:35 05/12/20 23 05/16/2023 CBC/C OMPLE TE BLD COUNT W/DIF F hematocrit 44.4 % 35.7-4 5.7 Not Available [facility] (Lab) [address] [place], [address], 05/16/2023 20:21:35 05/12/20 23 05/16/2023 CBC/C OMPLE TE BLD COUNT W/DIF F mean red cell volume 91.0 fL 82.0-9 9.0 Not Available [facility] (Lab) [address] [place], [address], 05/16/2023 20:21:35 05/12/20 23 05/16/2023 CBC/C OMPLE TE BLD COUNT W/DIF F mean red cell hemoglobin 28.5 pg 27.0-3 3.0 Not Available [facility] (Lab) [address] [place], [address], 05/16/2023 20:21:35 05/12/20 23 05/16/2023 CBC/C OMPLE TE BLD COUNT W/DIF F mean RBC HGB concentratio n 31.3 g/dL 31.0-3 6.0 Not Available [facility] (Lab) [address] [place], [address], 05/16/2023 20:21:35 05/12/20 23 05/16/2023 CBC/C OMPLE TE BLD COUNT W/DIF F red cell distribution width 12.5 % 11.8-1 5.5 Not Available [facility] (Lab) [address] [place], [address], 05/16/2023 20:21:35 05/12/20 23 05/16/2023 CBC/C OMPLE TE BLD COUNT W/DIF F platelets 320 x10'3 /uL 150-40 0 Not Available [facility] (Lab) [address] [place], [address], 05/16/2023 20:21:35 05/12/20 23 05/16/2023 CBC/C OMPLE TE BLD COUNT W/DIF F mean platelet volume 11.8 fL 9.0-12 .4 Not Available [facility] (Lab) [address] [place], [address], 05/16/2023 20:21:35 05/12/20 23 05/16/2023 CBC/C OMPLE TE BLD COUNT W/DIF F neutrophils 59.8 % 39.0-7 2.0 Not Available [facility] (Lab) [address] [place], [address], 05/16/2023 20:21:35 05/12/20 23 05/16/2023 CBC/C OMPLE TE BLD COUNT W/DIF F lymphocytes 28.3 % 16.0-4 7.0 Not Available [facility] (Lab) [address] [place], [address], 05/16/2023 20:21:35 05/12/20 23 05/16/2023 CBC/C OMPLE TE BLD COUNT W/DIF F monocytes 7.4 % 5.0-12 .0 Not Available [facility] (Lab) [address] [place], [address], 05/16/2023 20:21:35 05/12/20 23 05/16/2023 CBC/C OMPLE TE BLD COUNT W/DIF F eosinophils 3.4 % 1.0-7. 0 Not Available [facility] (Lab) [address] [place], [address], 05/16/2023 20:21:35 05/12/20 23 05/16/2023 CBC/C OMPLE TE BLD COUNT W/DIF F basophils 0.4 % 0.0-2. 0 Not Available [facility] (Lab) [address] [place], [address], 05/16/2023 20:21:35 05/12/20 23 05/16/2023 CBC/C OMPLE TE BLD COUNT W/DIF F immature granulocytes 0.7 % 0.00-0 .50 high Not Available [facility] (Lab) [address] [place], [address], 05/16/2023 20:21:35 05/12/20 23 05/16/2023 CBC/C OMPLE TE BLD COUNT W/DIF F neutrophils, absolute count 5.86 x10'3 /uL 1.5-8. 0 Not Available [facility] (Lab) [address] [place], [address], 05/16/2023 20:21:35 05/12/20 23 05/16/2023 CBC/C OMPLE TE BLD COUNT W/DIF F lymphocytes, absolute count 2.77 x10'3 /uL 1.07-3 .43 Not Available [facility] (Lab) [address] [place], [address], 05/16/2023 20:21:35 05/12/20 23 05/16/2023 CBC/C OMPLE TE BLD COUNT W/DIF F monocytes, absolute count 0.72 x10'3 /uL 0.29-0 .99 Not Available [facility] (Lab) [address] [place], [address], 05/16/2023 20:21:35 05/12/20 23 05/16/2023 CBC/C OMPLE TE BLD COUNT W/DIF F eosinophils, absolute count 0.33 x10'3 /uL 0.02-0 .53 Not Available [facility] (Lab) [address] [facility] [place], [address], 05/16/2023 20:21:35 05/12/20 23 05/16/2023 CBC/C OMPLE TE BLD COUNT W/DIF F basophils, absolute count 0.04 x10'3 /uL 0.01-0 .08 Not Available [facility] (Lab) [address] [place], [address], 05/16/2023 20:21:35 05/12/20 23 05/16/2023 CBC/C OMPLE TE BLD COUNT W/DIF F immature granulocytes ,absolute 0.07 x10'3 /uL 0.00-0 .05 high Not Available [facility] (Lab) [address] [place], [address], 05/16/2023 20:21:35 05/12/20 23 05/16/2023 CBC/C OMPLE TE BLD COUNT W/DIF F nucleated red blood cells 0.0 % -0 Not Available [facility] (Lab) [address] [place], [address], 05/16/2023 20:21:35 05/12/20 23 05/16/2023 CBC/C OMPLE TE BLD COUNT W/DIF F NRBC# 0.00 x10'3 /uL Not Available [facility] (Lab) [address] [place], [address], 05/16/2023 20:21:35 05/16/20 23 05/16/2023 CBC/C OMPLE TE BLD COUNT W/DIF F white blood cells 9.8 x10'3 /uL 4.2-10 .8 Not Available [facility] (Lab) [address] [place], [address], 05/16/2023 19:33:51 05/16/20 23 05/16/2023 CBC/C OMPLE TE BLD COUNT W/DIF F red blood cells 4.88 x10'6 /uL 3.80-5 .20 Not Available [facility] (Lab) [address] [place], [address], 05/16/2023 19:33:51 05/16/20 23 05/16/2023 CBC/C OMPLE TE BLD COUNT W/DIF F hemoglobin 13.9 g/dL 12.0-1 5.6 Not Available [facility] (Lab) [address] [place], [address], 05/16/2023 19:33:51 05/16/20 23 05/16/2023 CBC/C OMPLE TE BLD COUNT W/DIF F hematocrit 44.4 % 35.7-4 5.7 Not Available [facility] (Lab) [address] [place], [address], 05/16/2023 19:33:51 05/16/20 23 05/16/2023 CBC/C OMPLE TE BLD COUNT W/DIF F mean red cell volume 91.0 fL 82.0-9 9.0 Not Available [facility] (Lab) [address] [place], [address], 05/16/2023 19:33:51 05/16/20 23 05/16/2023 CBC/C OMPLE TE BLD COUNT W/DIF F mean red cell hemoglobin 28.5 pg 27.0-3 3.0 Not Available [facility] (Lab) [address] [place], [address], 05/16/2023 19:33:51 05/16/20 23 05/16/2023 CBC/C OMPLE TE BLD COUNT W/DIF F mean RBC HGB concentratio n 31.3 g/dL 31.0-3 6.0 Not Available [facility] (Lab) [address] [place], [address], 05/16/2023 19:33:51 05/16/20 23 05/16/2023 CBC/C OMPLE TE BLD COUNT W/DIF F red cell distribution width 12.5 % 11.8-1 5.5 Not Available [facility] (Lab) [address] [place], [address], 05/16/2023 19:33:51 05/16/20 23 05/16/2023 CBC/C OMPLE TE BLD COUNT W/DIF F platelets 320 x10'3 /uL 150-40 0 Not Available [facility] (Lab) [address] [place], [address], 05/16/2023 19:33:51 05/16/20 23 05/16/2023 CBC/C OMPLE TE BLD COUNT W/DIF F mean platelet volume 11.8 fL 9.0-12 .4 Not Available [facility] (Lab) [address] [place], [address], 05/16/2023 19:33:51 05/16/20 23 05/16/2023 CBC/C OMPLE TE BLD COUNT W/DIF F neutrophils 59.8 % 39.0-7 2.0 Not Available [facility] (Lab) [address] [place], [address], 05/16/2023 19:33:51 05/16/20 23 05/16/2023 CBC/C OMPLE TE BLD COUNT W/DIF F lymphocytes 28.3 % 16.0-4 7.0 Not Available [facility] (Lab) [address] [place], [address], 05/16/2023 19:33:51 05/16/20 23 05/16/2023 CBC/C OMPLE TE BLD COUNT W/DIF F monocytes 7.4 % 5.0-12 .0 Not Available [facility] (Lab) [address] [place], [address], 05/16/2023 19:33:51 05/16/20 23 05/16/2023 CBC/C OMPLE TE BLD COUNT W/DIF F eosinophils 3.4 % 1.0-7. 0 Not Available [facility] (Lab) [address] [place], [address], 05/16/2023 19:33:51 05/16/20 23 05/16/2023 CBC/C OMPLE TE BLD COUNT W/DIF F basophils 0.4 % 0.0-2. 0 Not Available [facility] (Lab) [address] [place], [address], 05/16/2023 19:33:51 05/16/20 23 05/16/2023 CBC/C OMPLE TE BLD COUNT W/DIF F immature granulocytes 0.7 % 0.00-0 .50 high Not Available [facility] (Lab) [address] [place], [address], 05/16/2023 19:33:51 05/16/20 23 05/16/2023 CBC/C OMPLE TE BLD COUNT W/DIF F neutrophils, absolute count 5.86 x10'3 /uL 1.5-8. 0 Not Available [facility] (Lab) [address] [place], [address], 05/16/2023 19:33:51 05/16/20 23 05/16/2023 CBC/C OMPLE TE BLD COUNT W/DIF F lymphocytes, absolute count 2.77 x10'3 /uL 1.07-3 .43 Not Available [facility] (Lab) [address] [place], [address], 05/16/2023 19:33:51 05/16/2005/16/2023 CBC/C OMPLE TE BLD COUNT W/DIF F monocytes, absolute count 0.72 x10'3 /uL 0.29-0 .99 Not Available [facility] (Lab) [address] [place], [address], 05/16/2023 19:33:51 05/16/20 23 05/16/2023 CBC/C OMPLE TE BLD COUNT W/DIF F eosinophils, absolute count 0.33 x10'3 /uL 0.02-0 .53 Not Available [facility] (Lab) [address] [place], [address], 05/16/2023 19:33:51 05/16/20 23 05/16/2023 CBC/C OMPLE TE BLD COUNT W/DIF F basophils, absolute count 0.04 x10'3 /uL 0.01-0 .08 Not Available [facility] (Lab) [address] [place], [address], 05/16/2023 19:33:51 05/16/20 23 05/16/2023 CBC/C OMPLE TE BLD COUNT W/DIF F immature granulocytes ,absolute 0.07 x10'3 /uL 0.00-0 .05 high Not Available [facility] (Lab) [address] [place], [address], 05/16/2023 19:33:51 05/16/20 23 05/16/2023 CBC/C OMPLE TE BLD COUNT W/DIF F nucleated red blood cells 0.0 % -0 Not Available [facility] (Lab) [address] [place], [address], 05/16/2023 19:33:51 05/16/20 23 05/16/2023 CBC/C OMPLE TE BLD COUNT W/DIF F NRBC# 0.00 x10'3 /uL Not Available [facility] (Lab) [address] [place], [address], 05/16/2023 19:33:51 05/18/20 23 05/18/2023 CBC/C OMPLE TE BLD COUNT W/DIF F white blood cells 9.7 x10'3 /uL 4.2-10 .8 Not Available [facility] (Lab) [address] [place], [address], 05/18/2023 19:36:01 05/18/20 23 05/18/2023 CBC/C OMPLE TE BLD COUNT W/DIF F red blood cells 4.49 x10'6 /uL 3.80-5 .20 Not Available [facility] (Lab) [address] [place], [address], 05/18/2023 19:36:01 05/18/20 23 05/18/2023 CBC/C OMPLE TE BLD COUNT W/DIF F hemoglobin 12.9 g/dL 12.0-1 5.6 Not Available [facility] (Lab) [address] [place], [address], 05/18/2023 19:36:01 05/18/20 23 05/18/2023 CBC/C OMPLE TE BLD COUNT W/DIF F hematocrit 40.7 % 35.7-4 5.7 Not Available [facility] (Lab) [address] [place], [address], 05/18/2023 19:36:01 05/18/20 23 05/18/2023 CBC/C OMPLE TE BLD COUNT W/DIF F mean red cell volume 90.6 fL 82.0-9 9.0 Not Available [facility] (Lab) [address] [place], [address], 05/18/2023 19:36:01 05/18/20 23 05/18/2023 CBC/C OMPLE TE BLD COUNT W/DIF F mean red cell hemoglobin 28.7 pg 27.0-3 3.0 Not Available [facility] (Lab) [address] [place], [address], 05/18/2023 19:36:01 05/18/20 23 05/18/2023 CBC/C OMPLE TE BLD COUNT W/DIF F mean RBC HGB concentratio n 31.7 g/dL 31.0-3 6.0 Not Available [facility] (Lab) [address] [place], [address], 05/18/2023 19:36:01 05/18/20 23 05/18/2023 CBC/C OMPLE TE BLD COUNT W/DIF F red cell distribution width 12.9 % 11.8-1 5.5 Not Available [facility] (Lab) [address] [place], [address], 05/18/2023 19:36:01 05/18/20 23 05/18/2023 CBC/C OMPLE TE BLD COUNT W/DIF F platelets 308 x10'3 /uL 150-40 0 Not Available [facility] (Lab) [address] [place], [address], 05/18/2023 19:36:01 05/18/20 23 05/18/2023 CBC/C OMPLE TE BLD COUNT W/DIF F mean platelet volume 11.3 fL 9.0-12 .4 Not Available [facility] (Lab) [address] [place], [address], 05/18/2023 19:36:01 05/18/20 23 05/18/2023 CBC/C OMPLE TE BLD COUNT W/DIF F neutrophils 53.5 % 39.0-7 2.0 Not Available [facility] (Lab) [address] [place], [address], 05/18/2023 19:36:01 05/18/20 23 05/18/2023 CBC/C OMPLE TE BLD COUNT W/DIF F lymphocytes 36.0 % 16.0-4 7.0 Not Available [facility] (Lab) [address] [place], [address], 05/18/2023 19:36:01 05/18/20 23 05/18/2023 CBC/C OMPLE TE BLD COUNT W/DIF F monocytes 6.9 % 5.0-12 .0 Not Available [facility] (Lab) [address] [place], [address], 05/18/2023 19:36:01 05/18/20 23 05/18/2023 CBC/C OMPLE TE BLD COUNT W/DIF F eosinophils 2.7 % 1.0-7. 0 Not Available [facility] (Lab) [address] [place], [address], 05/18/2023 19:36:01 05/18/20 23 05/18/2023 CBC/C OMPLE TE BLD COUNT W/DIF F basophils 0.5 % 0.0-2. 0 Not Available [facility] (Lab) [address] [place], [address], 05/18/2023 19:36:01 05/18/20 23 05/18/2023 CBC/C OMPLE TE BLD COUNT W/DIF F immature granulocytes 0.4 % 0.00-0 .50 Not Available [facility] (Lab) [address] [place], [address], 05/18/2023 19:36:01 05/18/20 23 05/18/2023 CBC/C OMPLE TE BLD COUNT W/DIF F neutrophils, absolute count 5.19 x10'3 /uL 1.5-8. 0 Not Available [facility] (Lab) [address] [place], [address], 05/18/2023 19:36:01 05/18/20 23 05/18/2023 CBC/C OMPLE TE BLD COUNT W/DIF F lymphocytes, absolute count 3.50 x10'3 /uL 1.07-3 .43 high Not Available [facility] (Lab) [address] [place], [address], 05/18/2023 19:36:01 05/18/20 23 05/18/2023 CBC/C OMPLE TE BLD COUNT W/DIF F monocytes, absolute count 0.67 x10'3 /uL 0.29-0 .99 Not Available [facility] (Lab) [address] [place], [address], 05/18/2023 19:36:01 05/18/20 23 05/18/2023 CBC/C OMPLE TE BLD COUNT W/DIF F eosinophils, absolute count 0.26 x10'3 /uL 0.02-0 .53 Not Available [facility] (Lab) [address] [place], [address], 05/18/2023 19:36:01 05/18/2005/18/2023 CBC/C OMPLE TE BLD COUNT W/DIF F basophils, absolute count 0.05 x10'3 /uL 0.01-0 .08 Not Available [facility] (Lab) [address] [place], [address], 05/18/2023 19:36:01 05/18/20 23 05/18/2023 CBC/C OMPLE TE BLD COUNT W/DIF F immature granulocytes ,absolute 0.04 x10'3 /uL 0.00-0 .05 Not Available [facility] (Lab) [address] [place], [address], 05/18/2023 19:36:01 05/18/2005/18/2023 CBC/C OMPLE TE BLD COUNT W/DIF F nucleated red blood cells 0.0 % -0 Not Available [facility] (Lab) [address] [place], [address], 05/18/2023 19:36:01 05/18/2005/18/2023 CBC/C OMPLE TE BLD COUNT W/DIF F NRBC# 0.00 x10'3 /uL Not Available [facility] (Lab) [address] [place], [address], 05/18/2023 19:36:01 05/18/20 23 05/18/2023 MAGNE SIUM magnesium 2.0 mg/dL 1.6-2. 3 Not Available [facility] (Lab) [address] [place], [address], 05/18/2023 20:56:27 05/18/20 23 05/18/2023 COMPR EHENS MARIAH METAB OLIC PANEL sodium 137 mmol/ L 137-14 5 Not Available [facility] (Lab) [address] [place], [address], 05/18/2023 20:56:33 05/18/20 23 05/18/2023 COMPR EHENS MARIAH METAB OLIC PANEL potassium 4.4 mmol/ L 3.5-5. 1 Not Available [facility] (Lab) [address] [place], [address], 05/18/2023 20:56:33 05/18/20 23 05/18/2023 COMPR EHENS MARIAH METAB OLIC PANEL chloride 103 mmol/ L 98-107 Not Available [facility] (Lab) [address] [place], [address], 05/18/2023 20:56:33 05/18/20 23 05/18/2023 COMPR EHENS MARIAH METAB OLIC PANEL carbon dioxide 27 mmol/ L 22-30 Not Available [facility] (Lab) [address] [place], [address], 05/18/2023 20:56:33 05/18/20 23 05/18/2023 COMPR EHENS MARIAH METAB OLIC PANEL anion gap 11.4 mmol/ L 14-22 low Not Available [facility] (Lab) [address] [place], [address], 05/18/2023 20:56:33 05/18/20 23 05/18/2023 COMPR EHENS MARIAH METAB OLIC PANEL glucose 95 mg/dL 70-99 Not Available [facility] (Lab) [address] [place], [address], 05/18/2023 20:56:33 05/18/20 23 05/18/2023 COMPR EHENS MARIAH METAB OLIC PANEL BUN 7 mg/dL 8-19 low Not Available [facility] (Lab) [address] [place], [address], 05/18/2023 20:56:33 05/18/20 23 05/18/2023 COMPR EHENS MARIAH METAB OLIC PANEL creatinine 0.53 mg/dL 0.66-1 .25 low Not Available [facility] (Lab) [address] [facility] [place], [address], 05/18/2023 20:56:33 05/18/20 23 05/18/2023 COMPR EHENS MARIAH METAB OLIC PANEL GFR >60 Refer ence Range : Presho ge GFR Healt hy Adult : >60 mL/mi n/1.7 3 m2 Chron ic Kidne y Disea se: 15-60 mL/mi n/1.7 3 m2 Kidne y Failu re: <15/m L/min /1.73 m2 www.n iddk. nih.g ov The MDRD study equat ion has not been valid ated in child kaelyn <18 years of age; pregn ant women ; the elder ly >85 years of age; or in some racia l or ethni c subgr oups, such as Hisnc nics. Outsi de the valid ated vicky eters , estim ated GFR is less accur ate, requi ring clini lakeisha judgm ent on a case- by-ca se basis . Clini lakeisha inter preta tion for other races and ages must be made by the clini arabella. The MDRD study equat ion has not been valid ated for the evalu ation of serum creat inine relat ed to nutri makayla l statu s or medic ation usage . For perso ns <18 years of age, a pedia tric GFR calcu lator is avail able on the [facility] websi te: https ://ian santos.jorge rodriguez.o norma/pr ofess ional s/kdo qi/gf r_cal culat or Not Available [facility] (Lab) [address] [place], [address], 05/18/2023 20:56:33 05/18/20 23 05/18/2023 COMPR EHENS MARIAH METAB OLIC PANEL alkaline phosphatase 98 U/L 38-126 Not Available [facility] (Lab) [address] [place], [address], 05/18/2023 20:56:33 05/18/20 23 05/18/2023 COMPR EHENS MARIAH METAB OLIC PANEL alanine aminotransfe rase 18 U/L 0-35 Not Available [facility] (Lab) [address] [place], [address], 05/18/2023 20:56:33 05/18/20 23 05/18/2023 COMPR EHENS MARIAH METAB OLIC PANEL aspartate aminotransfe rase 21 U/L 15-37 Not Available [facility] (Lab) [address] [place], [address], 05/18/2023 20:56:33 05/18/20 23 05/18/2023 COMPR EHENS MARIAH METAB OLIC PANEL bilirubin, total 0.20 mg/dL 0.20-1 .30 Not Available [facility] (Lab) [address] [place], [address], 05/18/2023 20:56:33 05/18/20 23 05/18/2023 COMPR EHENS MARIAH METAB OLIC PANEL calcium 9.0 mg/dL 8.4-10 .2 Not Available [facility] (Lab) [address] [place], [address], 05/18/2023 20:56:33 05/18/20 23 05/18/2023 COMPR EHENS MARIAH METAB OLIC PANEL total protein 7.6 g/dL 6.3-8. 2 Not Available [facility] (Lab) [address] [place], [address], 05/18/2023 20:56:33 05/18/20 23 05/18/2023 COMPR EHENS MARIAH METAB OLIC PANEL albumin 4.3 g/dL 3.4-5. 0 Not Available [facility] (Lab) [address] [place], [address], 05/18/2023 20:56:33 05/18/20 23 05/18/2023 COMPR EHENS MARIAH METAB OLIC PANEL globulin 3.3 g/dL 2.6-4. 2 Not Available [facility] (Lab) [address] [place], [address], 05/18/2023 20:56:33 05/18/20 23 05/18/2023 COMPR EHENS MARIAH METAB OLIC PANEL A/G ratio 1.3 ratio 1.0-2. 0 Not Available [facility] (Lab) [address] [place], [address], 05/18/2023 20:56:33 05/18/20 23 05/18/2023 TSH thyroid-stim ulating hormone 1.880 uIU/m L 0.465- 4.680 Not Available [facility] (Lab) [address] [place], [address], 05/18/2023 21:01:06 05/18/2005/18/2023 VITAM IN B12 (LINDA WILBER ) vb12 237 pg/mL 239-93 1 low Not Available [facility] (Lab) [address] [place], [address], 05/18/2023 21:48:10 05/18/20 23 05/18/2023 FOLAT E, SERUM /PLAS MA folate 3.56 NG/mL 2.76-2 0.0 Not Available [facility] (Lab) [address] [place], [address], 05/18/2023 21:48:24 08/24/20 23 08/24/2023 CBC/C OMPLE TE BLD COUNT W/DIF F white blood cells 9.2 x10'3 /uL 4.2-10 .8 Not Available [facility] (Lab) [address] [place], [address], 08/24/2023 20:01:41 08/24/20 23 08/24/2023 CBC/C OMPLE TE BLD COUNT W/DIF F red blood cells 4.56 x10'6 /uL 3.80-5 .20 Not Available [facility] (Lab) [address] [place], [address], 08/24/2023 20:01:41 08/24/20 23 08/24/2023 CBC/C OMPLE TE BLD COUNT W/DIF F hemoglobin 13.1 g/dL 12.0-1 5.6 Not Available [facility] (Lab) [address] [place], [address], 08/24/2023 20:01:41 08/24/20 23 08/24/2023 CBC/C OMPLE TE BLD COUNT W/DIF F hematocrit 42.5 % 35.7-4 5.7 Not Available [facility] (Lab) [address] [place], [address], 08/24/2023 20:01:41 08/24/20 23 08/24/2023 CBC/C OMPLE TE BLD COUNT W/DIF F mean red cell volume 93.2 fL 82.0-9 9.0 Not Available [facility] (Lab) [address] [place], [address], 08/24/2023 20:01:41 08/24/20 23 08/24/2023 CBC/C OMPLE TE BLD COUNT W/DIF F mean red cell hemoglobin 28.7 pg 27.0-3 3.0 Not Available [facility] (Lab) [address] [place], [address], 08/24/2023 20:01:41 08/24/20 23 08/24/2023 CBC/C OMPLE TE BLD COUNT W/DIF F mean RBC HGB concentratio n 30.8 g/dL 31.0-3 6.0 low Not Available [facility] (Lab) [address] [place], [address], 08/24/2023 20:01:41 08/24/20 23 08/24/2023 CBC/C OMPLE TE BLD COUNT W/DIF F red cell distribution width 12.6 % 11.8-1 5.5 Not Available [facility] (Lab) [address] [place], [address], 08/24/2023 20:01:41 08/24/20 23 08/24/2023 CBC/C OMPLE TE BLD COUNT W/DIF F platelets 314 x10'3 /uL 150-40 0 Not Available [facility] (Lab) [address] [place], [address], 08/24/2023 20:01:41 08/24/20 23 08/24/2023 CBC/C OMPLE TE BLD COUNT W/DIF F mean platelet volume 10.7 fL 9.0-12 .4 Not Available [facility] (Lab) [address] [place], [address], 08/24/2023 20:01:41 08/24/20 23 08/24/2023 CBC/C OMPLE TE BLD COUNT W/DIF F neutrophils 65.1 % 39.0-7 2.0 Not Available [facility] (Lab) [address] [place], [address], 08/24/2023 20:01:41 08/24/20 23 08/24/2023 CBC/C OMPLE TE BLD COUNT W/DIF F lymphocytes 22.6 % 16.0-4 7.0 Not Available [facility] (Lab) [address] [place], [address], 08/24/2023 20:01:41 08/24/20 23 08/24/2023 CBC/C OMPLE TE BLD COUNT W/DIF F monocytes 6.4 % 5.0-12 .0 Not Available [facility] (Lab) [address] [place], [address], 08/24/2023 20:01:41 08/24/20 23 08/24/2023 CBC/C OMPLE TE BLD COUNT W/DIF F eosinophils 5.2 % 1.0-7. 0 Not Available [facility] (Lab) [address] [place], [address], 08/24/2023 20:01:41 08/24/20 23 08/24/2023 CBC/C OMPLE TE BLD COUNT W/DIF F basophils 0.4 % 0.0-2. 0 Not Available [facility] (Lab) [address] [place], [address], 08/24/2023 20:01:41 08/24/20 23 08/24/2023 CBC/C OMPLE TE BLD COUNT W/DIF F immature granulocytes 0.3 % 0.00-0 .50 Not Available [facility] (Lab) [address] [place], [address], 08/24/2023 20:01:41 08/24/20 23 08/24/2023 CBC/C OMPLE TE BLD COUNT W/DIF F neutrophils, absolute count 6.00 x10'3 /uL 1.5-8. 0 Not Available [facility] (Lab) [address] [place], [address], 08/24/2023 20:01:41 08/24/20 23 08/24/2023 CBC/C OMPLE TE BLD COUNT W/DIF F lymphocytes, absolute count 2.09 x10'3 /uL 1.07-3 .43 Not Available [facility] (Lab) [address] [place], [address], 08/24/2023 20:01:41 08/24/20 23 08/24/2023 CBC/C OMPLE TE BLD COUNT W/DIF F monocytes, absolute count 0.59 x10'3 /uL 0.29-0 .99 Not Available [facility] (Lab) [address] [place], [address], 08/24/2023 20:01:41 08/24/20 23 08/24/2023 CBC/C OMPLE TE BLD COUNT W/DIF F eosinophils, absolute count 0.48 x10'3 /uL 0.02-0 .53 Not Available [facility] (Lab) [address] [place], [address], 08/24/2023 20:01:41 08/24/20 23 08/24/2023 CBC/C OMPLE TE BLD COUNT W/DIF F basophils, absolute count 0.04 x10'3 /uL 0.01-0 .08 Not Available [facility] (Lab) [address] [place], [address], 08/24/2023 20:01:41 08/24/20 23 08/24/2023 CBC/C OMPLE TE BLD COUNT W/DIF F immature granulocytes ,absolute 0.03 x10'3 /uL 0.00-0 .05 Not Available [facility] (Lab) [address] [place], [address], 08/24/2023 20:01:41 08/24/20 23 08/24/2023 CBC/C OMPLE TE BLD COUNT W/DIF F nucleated red blood cells 0.0 % -0 Not Available [facility] (Lab) [address] [place], [address], 08/24/2023 20:01:41 08/24/20 23 08/24/2023 CBC/C OMPLE TE BLD COUNT W/DIF F NRBC# 0.00 x10'3 /uL Not Available [facility] (Lab) [address] [place], [address], 08/24/2023 20:01:41 08/24/20 23 08/24/2023 FOLAT E, SERUM /PLAS MA folate 2.95 NG/mL 2.76-2 0.0 Not Available [facility] (Lab) [address] [place], [address], 08/24/2023 21:16:22 08/24/20 23 08/24/2023 VITAM IN B12 (LINDA WILBER ) vb12 255 pg/mL 239-93 1 Not Available [facility] (Lab) [address] [place], [address], 08/24/2023 21:16:25 05/13/20 23 05/13/2023 XR, chest No observ ation record ed. [email or web address] [facility] [address] [facility] [address], [place], [address], 05/16/2023 15:34:17 12/07/19 24 12/07/2023 XR, ankle No observ ation record ed. [email or web address] [facility] [address] [facility] [address], [place], [address], 12/16/2023 15:15:54 Result Notes None recorded. Problems Name Problem SNOMED Code Status Onset Date Resolution Date Notes Provider Name and Address Organization Details Recorded Time Multiple joint pain 82972598 Active 2022 Janae Sullivan MD [address] [place] [address], [place], [address], [employer] 3 08:28:28 Irregular periods 13234667 Active 2022 Janae Sullivan MD [address], [place], [address], [employer] 3 08:32:39 Asthma 479936881 Active 2022 Janae Sullivan MD [address], [place], [address], [employer] [facility] 3 08:34:57 Eczema 71044786 Active 2022 Janae Sullivan MD [address], [place], [address], [employer] [facility] 3 08:35:02 Gastroesoph ageal reflux disease without esophagitis 639770678 Active 2022 Janae Sullivan MD [address], [place], [address], [employer] 3 08:44:05 Leukocytosi s 611395757 Active 2022 Janae Sullivan MD [address], [place], [address], [employer] 3 08:19:39 C-reactive protein above reference range 9369753715948 04 Active 2022 Janae Sullivan MD [address], [place], [address], [employer] 3 08:19:52 Anxiety 46868639 Active 2022 Janae Sullivan MD [address], [address], [place], [address], [employer] 3 08:21:50 Hyperglycem ia 16824062 Active 2022 Janae Sullivan MD [address], [place], [address], [employer] 3 08:22:55 Palpitation s 40157201 Active 2022 Janae Sullivan MD [address], [address], [place], [address], [employer] 3 12:15:06 Cobalamin deficiency 397833014 Active 2022 Janae Sullivan MD [address] [facility] [address], [place], [address], [employer] 3 07:50:45 Postural orthostatic tachycardia syndrome 555485939 Active 2022 Janae Sullivan MD [address] [facility], [address], [place], [address], [employer] 3 13:02:04 Pain of right ankle joint 3603815927424 9106 Active 2023 Janae Sullivan MD [address], [place], [address], [employer] 4 07:59:18 Sprain of lateral ligament of ankle joint 600122796 Active 2023 YOU García [address] [facility] [address], [place], [address], [employer] 4 13:08:22 Problem Notes None recorded. Procedures Surgical History Date Name Laterality Status Provider Name and Address Organization Details Recorded Time 3 Tilt table evaluation completed Luna Cheng CNA [employer] 08/24/2023 12:54:58 Imaging Results Imaging Date Name Status LastModified by Organiz ation Details LastModified Time 05/13/2023 [email or web address] [address] [facility] [address] [place] [address], [address], 05/16/2023 15:34:17 12/07/2023 XR, ankle completed [facility] [address] [place] [address], [address], 12/16/2023 15:15:54 Procedure Notes None recorded. Medical Equipment None Reported. Allergies Allergen ID Allergen Name Allergen Category Reaction Reaction Severity Criticality Documentation Date Start Date Code Code System Note Provider Name and Address Organization Details Recorded Time 9190 Product containin g penicilli n (product) medicatio n hives Not available Not available 12/15/2022 71239 8001 SNOMED Not Available [facility] 3 05:07:54 Medications Name Sig Start Date Stop Date Status Note LastModified by Organization Details LastModified Time naproxen 375 mg tablet TAKE 1 TABLET BY MOUTH TWICE DAILY 01/05 completed Not Available Not Available Not Available clindamycin HCl 300 mg capsule TAKE 1 CAPSULE BY MOUTH EVERY 8 HOURS FOR 7 DAYS 01/27 completed Not Available Not Available Not Available azithromyci n 250 mg tablet TAKE 2 TABLETS BY MOUTH FOR 1 DAY THEN TAKE 1 TABLET BY MOUTH EVERY DAY FOR 4 DAYS active Not Available Not Available No t Available fluconazole 150 mg tablet TAKE 1 TABLET BY MOUTH EVERY 72 HOURS 03/03 completed Not Available Not Available Not Available prednisone 20 mg tablet TAKE 3 TABLETS BY MOUTH DAILY 12/30 completed Not Available Not Available Not Available clonazepam 0.5 mg tablet TAKE 1 TABLET BY MOUTH EVERY DAY NEEDED active Not Available Not Available No t Available clonazepam 1 mg tablet TAKE 1 TABLET BY MOUTH EVERY NIGHT AT BEDTIME NEEDED active Not Available Not Available No t Available bisoprolol fumarate 5 mg tablet TAKE 1 TABLET BY MOUTH EVERY DAY 08/24 completed Not Available Not Available Not Available magnesium oxide 400 mg (241.3 mg magnesium) tablet TAKE 1 TABLET BY MOUTH DAILY 12/30 completed Not Available Not Available Not Available pantoprazol e 40 mg tablet,larry yed release TAKE 1 TABLET BY MOUTH EVERY DAY 01/27 completed Not Available Not Available Not Available buspirone 10 mg tablet TAKE 1 TABLET BY MOUTH THREE TIMES DAILY NEEDED FOR ANXIETY 08/24 completed Not Available Not Available Not Available cyanocobala min (vit B-12) 1,[address] 1 tablet every day by sublingua l route. 01/05 completed Not Available Not Available Not Available metoprolol succinate ER 25 mg tablet,exte nded release 24 hr TAKE 1/2 TABLET BY MOUTH EVERY MORNING & 1 TABLET NIGHTLY active Not Available Not Available No t Available polyethylen e glycol 3350 17 gram/dose oral powder MIX 1 CAPFUL IN 4-8 OUNCES OF WATER PER DAY 08/24 completed Not Available Not Available Not Available albuterol sulfate HFA 90 mcg/actuati on aerosol inhaler INHALE 2 PUFFS BY MOUTH FOUR TIMES DAILY NEEDED FOR SHORTNESS OF BREATH OR WHEEZING active Not Available Not Available No t Available sertraline 50 mg tablet TAKE 1 TABLET BY MOUTH EVERY NIGHT AT BEDTIME WITH FOOD 01/05 completed Not Available Not Available Not Available loratadine 10 mg tablet TAKE 1 TABLET BY MOUTH DAILY 12/30 completed Not Available Not Available Not Available escitalopra m 10 mg tablet TAKE 1 TABLET BY MOUTH EVERY DAY active Not Available Not Available No t Available Junel FE 1.5/30 (28) 1.5 mg-30 mcg (21)/75 mg (7) tablet TAKE 1 TABLET BY MOUTH DAILY active Not Available Not Available No t Available escitalopra m 5 mg tablet TAKE 2 TABLET BY MOUTH EVERY DAY. MK 09/19/2310/06 completed Not Available Not Available Not Available Flovent HFA 110 mcg/actuati on aerosol inhaler INL 2 PFS PO BID 12/30 completed Not Available Not Available Not Available nebivolol 5 mg tablet TAKE 1 TABLET BY MOUTH EVERY DAY 03/17 completed Not Available Not Available Not Available ProChamber USE WITH INHALER DIRECTED 01/05 completed Not Available Not Available Not Available Blisovi 24 Fe 1 mg-20 mcg (24)/75 mg (4) tablet TAKE 1 TABLET BY MOUTH EVERY DAY active Not Available Not Available No t Available Vienva 0.1 mg-20 mcg tablet TAKE 1 TABLET BY MOUTH DAILY 08/24 completed Not Available Not Available Not Available Vitals Date Recorded Body height Body mass index (BMI) Percentile per age and sex Body mass index (BMI) Body weight Body temperature Heart rate Oxygen saturation Oxygen saturation in Arterial blood by Pulse oximetry Systolic blood pressure Diastolic blood pressure Provider Name and Address Organization Details Last Updated DateTime 3 167.64 cm 96 % 32.9 kg/m2 40443.8 4 g 98.3 [degF] 102 /min 98 % 98 % 136 mm[Hg] 68 mm[Hg] Tomi Holguin RN [place] [facility] [employer] 3 17:34:43 Date Recorded Body height Body mass index (BMI) Percentile per age and sex Body mass index (BMI) Body weight Body temperature Heart rate Oxygen saturation Oxygen saturation in Arterial blood by Pulse oximetry Systolic blood pressure Diastolic blood pressure Provider Name and Address Organization Details Last Updated DateTime 3 167.64 cm 96 % 32.9 kg/m2 35118.8 4 g 97.5 [degF] 94 /min 99 % 99 % 118 mm[Hg] 76 mm[Hg] Tomi Holguin RN [facility] [employer] [facility] 3 08:23:30 Date Recorded Body height Body mass index (BMI) Body mass index (BMI) Percentile per age and sex Body weight Body temperature Heart rate Oxygen saturation Oxygen saturation in Arterial blood by Pulse oximetry Systolic blood pressure Diastolic blood pressure Provider Name and Address Organization Details Last Updated DateTime 3 167.64 cm 32.3 kg/m2 95 % 69595.4 7 g 98.3 [degF] 104 /min 98 % 98 % 98 mm[Hg] 78 mm[Hg] Luna Cheng CNA [facility] [employer] [facility] 3 12:57:31 Date Recorded Body height Body mass index (BMI) Body mass index (BMI) Percentile per age and sex Body weight Provider Name and Address Organization Details Last Updated DateTime 01/06/2024 167.64 cm 34.1 kg/m2 96 % 89860.99 g Celia Ruiz BOTTLE CASER [facility] [employer] [facility] 01/06/2024 11:15:52 Social History Question Answer Notes LastModified by Organizat ion Details LastModified Time Tobacco Smoking Status Never Smoker Not Available [employer] 12/15/2022 04:40:27 What Is Your Level Of Alcohol Consumption? None [id number] Information not available 12/15/2022 What Is Your Level Of Caffeine Consumption? None Information not available 08/24/2023 In The 14 Days Before Symptom Onset, Have You Had Close Contact With A Laboratory-confir med COVID-19 While That Case Was Ill? No [id number] Information not available 12/15/2022 In The 14 Days Before Symptom Onset, Have You Had Close Contact With A Person Who Is Under Investigation For COVID-19 While That Person Was Ill? No [id number] Information not available 12/15/2022 Do You Or Have You Ever Used E-cigarettes Or Vape? 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 12/30/2022 [email or web address] Information not available 12/30/2022 Do You Or Have You Ever Used Smokeless Tobacco? Never Used Smokeless Tobacco [id number] Information not available 12/15/2022 How Much Tobacco Do You Smoke? No [id number] Information not available 12/15/2022 Do You Use Any Illicit Or Recreational Drugs? No Information not available 08/24/2023 Sex: Unknown Functional Status Question Answer Note LastModified by Organizat ion Details LastModified Time What is your exercise level? Occasional [id number] Information not available 12/15/2022 Mental Status None recorded. Family History Relationship Description Onset Age of this Age Resolved Age Notes LastModified by Organization Details LastModified Time Maternal Grandfather Cerebrovascu lar accident [id number] Not available 12/15/2022 04:42:16 Mother Iron deficiency [id number] Not available 12/15/2022 04:42:16 Maternal Grandfather Heart disease Not available 2023 11:18:06 Maternal Grandfather Family history of stroke Not available 2023 11:19:05 Maternal Grandfather Hypertensive disorder Not available 2023 11:19:50 Maternal Grandfather Diabetes mellitus Not available 2023 11:20:02 Maternal Grandfather Kidney disease Not available 2023 11:20:12 Unspecified Relation Heart disease great grandm a, unspec ified side Not available 01/06/2024 11:18:06 Unspecified Relation Family history of stroke great grandp a unspec ified side Not available 01/06/2024 11:18:55 Unspecified Relation Family history of malignant neoplasm matern al great grandm a Not available 01/06/2024 11:19:35 Maternal Grandmother Hypertensive disorder Not available 2023 11:19:51 Medical History Condition Response HEART DISEASE/HEART PROBLEMS Gynecological History Statement/Question Response Date of Last Pap Smear Current Control Method BCPs Age at Menarche 11 Date of LMP 10/17/2022 Obstetrics History GPAL:G 0 P 0 0 0 0 Immunizations Vaccine Type Date Status Note Provider Nam e and Address Organization Details Recorded Time Hib-Hep B 4 completed Luna Cheng [facility] [place], [place] [facility] [place] [facility] 08/24/2023 12:52:31 Hib-Hep B 3 completed Luna Cheng [employer] [place], [place] [facility] 08/24/2023 12:52:31 Hib-Hep B 3 completed Luna Cheng [employer] [place] [facility] 08/24/2023 12:52:31 meningococcal B, OMV 0 completed Luna Cheng [employer] [place] [facility] 08/24/2023 12:52:31 HPV9 6 completed Luna Cheng [employer] null, [place] [facility] 08/24/2023 12:52:31 HPV9 5 completed Luna Cheng BOTTLE [employer]ER null, [facility] 08/24/2023 12:52:31 IPV 4 completed Luna Cheng [employer] [place], [place] [facility] 08/24/2023 12:52:31 IPV 3 completed Luna Cheng [employer] null, [facility] 08/24/2023 12:52:31 IPV 8 completed Luna Cheng [employer] null, [facility] 08/24/2023 12:52:31 IPV 3 completed Luna Cheng [employer] null, [facility] 08/24/2023 12:52:31 Influenza, live, trivalent, intranasal 1 completed Luna Cheng [employer] null, [place] [facility] 08/24/2023 12:52:31 MMR 4 completed Luna Cheng [employer] [place], [place] [facility] 08/24/2023 12:52:31 MMR 8 completed DEEDEE RowellA null, [facility] 08/24/2023 12:52:31 pneumococcal conjugate PCV 7 4 completed DEEDEE RowellA null, [facility] 08/24/2023 12:52:31 pneumococcal conjugate PCV 7 3 completed DEEDEE RowellA null, [facility] 08/24/2023 12:52:31 pneumococcal conjugate PCV 7 4 completed DEEDEE RowellA null, [facility] 08/24/2023 12:52:31 pneumococcal conjugate PCV 7 3 completed Luna Cheng CNA null, [facility] 08/24/2023 12:52:31 influenza, unspecified formulation 4 completed Luna Cheng CNA null, [facility] 08/24/2023 12:52:31 Tdap 5 completed DEEDEE RowellA null, [facility] 08/24/2023 12:52:31 varicella 8 completed Luna Cheng CNA null, [facility] 08/24/2023 12:52:31 varicella 4 completed DEEDEE RowellA null, [facility] 08/24/2023 12:52:31 Influenza, split virus, trivalent, preservative 4 completed DEEDEE RowellA null, [facility] 08/24/2023 12:52:31 Influenza, split virus, trivalent, preservative 2 completed Luna Cheng CNA null, [facility] 08/24/2023 12:52:31 Influenza, split virus, trivalent, preservative 0 completed DEEDEE RowellA null, [facility] 08/24/2023 12:52:31 Influenza, split virus, trivalent, PF 3 completed DEEDEE RowellA [place] [facility] 08/24/2023 12:52:31 influenza, split (incl. purified surface antigen) 8 completed Luna Cheng [employer] [place] [employer] 08/24/2023 12:52:31 influenza, split (incl. purified surface antigen) 9 completed DEEDEE RowellA null, [facility] [employer] [facility] 08/24/2023 12:52:31 Novel Uxuzvmwtn-[id number], nasal 9 completed Luna Cheng [facility] [facility] [place] [facility] 08/24/2023 12:52:31 HPV, quadrivalent 5 completed DEEDEE RowellA null, [facility] 08/24/2023 12:52:31 Hep B, adolescent or pediatric 3 completed DEEDEE RowellA null, [facility] [employer] 08/24/2023 12:52:31 Hep A, ped/adol, 2 dose 2 completed Luna Cheng [employer] null, [facility] [employer] 08/24/2023 12:52:31 Hep A, pediatric, unspecified formulation 0 completed Luna Cheng [employer] null, [facility] [employer] 08/24/2023 12:52:31 meningococcal MCV4P 5 completed Luna Cheng BOTT[employer] null, [facility] [employer] [facility] 08/24/2023 12:52:31 meningococcal MCV4P 0 completed Luna Cheng [employer] [place] [employer] 08/24/2023 12:52:31 DTaP 4 completed Luna Cheng [employer] [place] [facility] [employer] [facility] 08/24/2023 12:52:31 DTaP 3 completed Luna Cheng BOTT[employer]ER null, [facility] [place] [employer] [facility] 08/24/2023 12:52:31 DTaP 8 completed Luna Cheng BOTTLE [employer]ER null, [facility] 08/24/2023 12:52:31 DTaP 4 completed Luna [place], [facility] [facility] null, [place] [facility] 08/24/2023 12:52:31 DTaP 3 completed Luna [place], [employer]OTT[employer] null, [facility] 08/24/2023 12:52:31 Influenza, split virus, quadrivalent, PF 6 completed Luna [place], BOTT[employer]ER null, [facility] 08/24/2023 12:52:31 Influenza, split virus, quadrivalent, PF 7 completed Luna [place], [employer]OTT[employer]ER null, [facility] 08/24/2023 12:52:31 Influenza, split virus, quadrivalent, PF 8 completed Luna [place], [employer]OTT[employer] null, [facility] 08/24/2023 12:52:31 Influenza, split virus, quadrivalent, PF 5 completed Luna [place], BOTT[employer] null, [facility] 08/24/2023 12:52:31 Past Encounters Encounter ID Performer Location Encounter Start Date Encounter Closed Date Diagnosis/Indication Diagnosis SNOMED-CT Code Diagnosis ICD10 Code Diagnosis Note [id number] _ATHENA_M IGRATION_ DEFAULT_1 _1 , 03/11/2021 00:00:00 03/11/2021 15:47:52 [id number] Janae Sullivan MD [facility] [address] [place] [address] 12/30/2022 08:07:57 12/30/2022 09:01:46 Multiple joint pain 50178538 M25.50 R53.83 knees, hips, knuckles, fingersche ck labs and xraysf/u in 4 weeks or sooner if needed Irregular periods 569583 07 N92.6 discussed that light or nonexisten t periods on ocps are not worrisomes he does have some vaginal dryness, 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 Gastroesop hageal reflux disease without esophagitis 425999159 K21.9 Avoid greasy/spi cy/acidic foodEat small, frequent mealsCall if any worsening symptoms including increased pain or blood in stools or if symptoms do not resolve in 14 daysf/u in 4 weeks or sooner if neededpant oprazole 40 mg daily [id number] Janae Sullivan MD [facility] Primary Care [address] [place] [address] 01/27/2023 08:02:18 01/27/2023 08:43:16 Gastroesophageal reflux disease without esophagitis 490408361 K21.9 Avoid greasy/spi cy/acidic foodEat small, frequent mealsCall if any worsening symptoms including increased pain or blood in stools or if symptoms do not resolve in 14 daysf/u in 4 weeks or sooner if neededpant oprazole 40 mg daily update 01/27/23: no significan t improvemen t, GI referral givenMiral ax dailysmall er, more frequent meals through the dayf/u in 4 weeks Leukocytosis 004138309 D 72.829 repeat cbcif persistent ly elevated, will refer to hematology for further evaluation given her reported history of leukocytos is C-reactive protein above reference range 5320458418 11087 R79.82 Anxiety 14244367 F41.9 she is interested in evaluation for anxiety, bipolar disorder and ADHDreferr al given Hyperglycemia 09767346 R 73.9 Z79.899 Hyperlipid emia screening 097280909 Z13.220 [id number] Janae Sullivan MD [facility] Primary Care [address] [place] [address] 03/03/2023 11:40:14 03/03/2023 12:28:04 Palpitations 26252627 R00.2 trial of nebivolol 5 mg daily, will need selective beta john due to h/o asthmad/c and be seen if any wheezing or sob [id number] Janae Sullivan MD [facility] Primary Care [address] [place] [address] 03/17/2023 17:30:25 03/17/2023 17:59:53 Anxiety 57631190 F41.9 she is interested in evaluation for anxiety, bipolar disorder and ADHDreferr al given at last appt, has appt coming uptrial of buspirone 10 mg po tid prn Palpitations 68772542 R0 0.2 trial of bisoprolol 5 mg daily, will need selective beta john due to h/o asthma-ins urance will not cover nebivolold /c and be seen if any wheezing or sob [id number] Janae Sullivan MD [facility] Primary Care [address] [place] [address] 05/12/2023 08:18:00 05/12/2023 11:11:41 Palpitations [id number] R00.2 check labshas appt with cards and EP upcoming Anxiety [id number] F41.9 again recommende d cbtclonaze casandra 0.5 mg, use sparingly #15 rxreviewed potential med s/e, pt understand s this can be habit forming and cause drowsiness do not take before driving/wo rkingf/u in 4 weeks, will again discuss maintenanc e med for anxiety like ssri, pt declined today [id number] Janae Sullivan MD [facility] Primary Care [address] [place] [address] 05/18/2023 10:50:14 05/18/2023 12:06:35 [id number] Janae Sullivan MD [facility] Primary Care [address] [place] [address] 08/24/2023 12:44:06 08/24/2023 13:57:26 Anxiety [id number] F41.9 again recommende d cbtclonaze casandra 0.5 mg, use sparingly #15 rxreviewed potential med s/e, pt understand s this can be habit forming and cause drowsiness do not take before driving/wo rkingf/u in 4 weeks, will again discuss maintenanc e med for anxiety like ssri, pt declined today update 08/24/23: psychiatry referral givensertr james 50 mg with food once per dayReviewe d potential med s/e, d/c and be seen if any si/hif/u in 4 weeks or sooner if needed Postural o rthostatic tachycardia syndrome [id number] G90.A will start metoprolol prescribed by cardiology and sertraline as abovestay well hydrated, take care with position changesf/u with cardiology as scheduled Cobalamin deficiency 190 [id number] E53.8 [id number] YOU García [facility] [address] [place] [address] 01/06/2024 10:49:54 01/06/2024 11:53:32 Pain of right ankle joint [id number] M25.571 Sprain of lateral ligament of ankle joint [id number] S93.491A Health Concerns Section Related Observation LastModified by Organization Detai ls LastModified Time None Recorded Concern Status LastModified by Organization Details LastModified Time None Recorded Advance Directives Directive None Recorded Payers Encounter Date Sequence Insurance Name Policy Number Policy Godinez Covered Member ID Godinez Member ID Guarantor Name 03/17/2023 1 [facility] ON OR AFTER 04/16/21 (MEDICAID REPLACEMENT - HMO) Deb Nugent [id number] 05/12/2023 1 [facility] - DOS ON OR AFTER 21 (MEDICAID REPLACEMENT - HMO) Deb Nugent [id number] 05/18/2023 1 [facility] ON OR AFTER 04/16/21 (MEDICAID REPLACEMENT - HMO) Deb Nugent [id number] 08/24/2023 1 [place] [facility] [facility] Deb N Nugent [id number] 01/06/2024 1 [place] [employer] Deb N Nugent [id number] Notes Date Note Type Note Provider Name and Address Organization Details Recorded Time 03/17/2023 text/html has appt with psychiatrist coming up but doesn't remember date off hand having increased anxiety-feels more anxious than depressed. Has anxiety in her family, does not want to take a daily pill because other family members have not done well with daily meds-it made her uncle sick and her mom had seizures. insurance would not cover the nebivolol, notice says it will cover bisoprolol Janae Sullivan MD [address] [place] [address], [facility] [address], [place], [address], [facility] [employer] [facility] [employer] [facility] 04/15/2023 08:14:46 05/12/2023 text/html heart rate continues to go up and down drastically . Can go from 60s/70s to 130s on standing. Has appt with cardiology and EP in early May. Very anxious about it, has not started her beta john because she is scared of possible s/e Janae Sullivan MD [address] [facility], [facility] [address], [place], [address], [facility] [employer] [facility] 05/15/2023 16:51:16 08/24/2023 text/html heart rate continues to go up and down drastically . Can go from 60s/70s to 130s on standing. Has appt with cardiology and EP in early May. Very anxious about it, has not started her beta john because she is scared of possible s/e update 08/24/23: She has been dx with POTS, wants to discuss treatment options. Continues to experience anxiety and feels ready to daily med. No si/hi. Janae Sullivan MD [address] [facility], [facility] [address], [place], [address], [facility] [employer] [facility] [employer] [facility] 09/13/2023 21:14:21 01/06/2024 text/html the patient is a 18-year-old female who presents after an injury to her right ankle. This occurred 1 month ago. She was walking down some stairs when she slipped twisted her ankle had an inversion-type injury. She had a lot of pain developed some swelling and mild ecchymosis. She went to the emergency room that day and had x-rays performed. X-rays demonstrated no acute fracture lesion or mass. Ankle mortise was well-maintained normal alignment no other trauma was noted on the plain films. I have reviewed the x-rays in detail today with the patient and her mother and I agree with the above findings. 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 She stopped wearing it but notes that she continues have significant lateral gutter pain along the course of the ATFL. She states if she overdoes it it gets puffy little bit swollen feels tight and stiff. She and her mother were concerned thought maybe it should be better by now she decided to come in for evaluation and treatment as she is continues to walk with a limp and has pain at about a 6 on a scale of 1-10 by her report. Denies any weakness or sensation of instability mainly stiffness swelling and aching pain.Past medical history sheet was reviewed and signed on the intake sheet today's date drug allergies current medications family social history previous surgical history 10 point review of systems was reviewed and discussed in detail today with the patient. YOU García [address] [facility], [facility] [address], [place], [address], [place] [facility] [place] [facility] [employer] 01/06/2024 13:09:10 OBGyn Episode No OBEpisode recorded.
--- NOTE | 2025-02-06 17:22 | ED_ITS ---
HPI - Syncope General Chief Complaint: Syncope Stated Complaint: POTS, passed out Time Seen by Provider: 02/06/25 17:08 History of Present Illness HPI narrative: 19 y/o F with a reported history of [place], thyroid disease, MACARIO presents emergency department with family at bedside for palpitations for the past 2 weeks. Patient states she was diagnosed with [place] about 1 year ago by her telecine operator with [employer], was started on metoprolol which she has been taking. States over the past couple of weeks her lightheadedness and palpitations have worsened. States 2 weeks ago she was on her hands and knees cleaning her room when she stood up too quickly and felt lightheaded. She has down on her bed but did not lose consciousness. States today she was sitting in the truck on her way to the emergency department when she developed lightheadedness, numbness to her extremities and spasms to her hands. She states this lasted a couple seconds. She states she did not lose consciousness see above felt as though she was about to. She reports shortness of breath with these episodes with denies chest pain, lower extremity edema, hemoptysis, headeache. At the time of my evaluation the patient states she feels generally weak and mildly lightheaded. She denies heavy periods, melena or hematochezia. She is planning to follow-up with her telecine operator soon. Related Data Home Medications ?Medication ?Instructions ?Recorded ?Confirmed ?Last Taken ?Type escitalopram oxalate 10 mg tablet 10 mg DIRECTED 12/15/23 08/02/24 Unknown History clonazepam 1 mg tablet 1 mg PO DAILY 05/29/24 08/02/24 Unknown History metoprolol succinate 25 mg 25 mg PO DAILY 06/29/24 08/02/24 Unknown History tablet,extended release 24 hr Allergies Allergy/AdvReac Type Severity Reaction Status Date / Time Penicillins Allergy Mild Hives / Verified 08/02/24 11:23 Red Face Review of Systems 2 Review of Systems: All systems reviewed & are unremarkable except as noted in HPI and below [facility] Past Medical History Medical History Nexplanon insertion 06/23/2023 Vaginal irritation Confirm cardiac activity, ultrasound Asthma Surgical History Surgical History No pertinent past surgical history Family History Family History Mother Anemia Other Cerebrovascular accident No acute medical problems Social History Social History Social History: Single Smoking status: Never smoker Second hand tobacco smoke exposure: No Alcohol intake: current Alcohol use details: Occasionally Substance use: never Substance use type: does not use Do You Feel Safe in your Home?: Yes Lack of Transportation: No Lack of Food: Never True Current Housing: I Have Housing Concerned About Future Housing: No Difficulty Paying Gas/Electric Bills: No Difficulty Paying for Meds: No Currently Unemployed: No Education: High School Diploma/GED Difficulty w/ Childcare or Family Care: No Living arrangements: with family Occupation/Education: occupation 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 HEAD: Normocephalic, atraumatic. EYES: PERRLA and EOMI. ENT: Nares clear, no rhinorrhea or epistaxis. Mucous membranes moist. NECK: Supple. CHEST: Clear to auscultation. No respiratory distress. HEART: Regular rate and rhythm. No murmur heard. Normal peripheral pulses. ABDOMEN: Soft, nontender, nondistended, normal active bowel sounds. EXTREMITIES: Normal range of motion. No edema. Negative Homans bilaterally. SKIN: Warm, dry, no rash. NEURO: No focal deficits. Alert and oriented x4. Sensation intact throughout. Strength 5/5 in BUE and BLE. No ataxia. Course Vital Signs Vital signs: Vital Signs Temperature 97.2 F L 02/06/25 15:12 Pulse Rate 79 02/06/25 15:12 Respiratory Rate 16 02/06/25 15:12 Blood Pressure 128/67 02/06/25 15:12 Pulse Oximetry 99 02/06/25 15:12 Temperature 97.2 F L 02/06/25 15:12 Pulse Rate 84 02/06/25 18:45 Respiratory Rate 17 02/06/25 18:19 Blood Pressure 132/63 02/06/25 18:45 Pulse Oximetry 100 02/06/25 18:19 Oxygen Delivery Room Air 02/06/25 16:47 MDM - Syncope MDM Narrative Medical decision making narrative: 19-year-old female with history of POTS in [facility] presents to the emergency department for 2 weeks of lightheadedness, palpitations and 2 episodes of presyncope. See HPI for further history. Triage vitals are stable. Patient is resting comfortably in exam bed. Heart rate and blood pressure within appropriate limits. EKG shows normal sinus rhythm with a rate of 76 bpm, normal CO interval, normal QRS duration, normal QTC, minimal Q-waves in the inferior and anterior leads with no changes from prior EKG, no ST elevations or depressions, findings not consistent with WPW or Brugada. Troponin is undetectable. D-dimer within normal limits, wells score is low risk. TSH is within normal limits. CBC with nonspecific leukocytosis of 11.2, no anemia. Chemistries are unremarkable with no electrolyte derangements. Magnesium is within normal limits. negative. CXR without acute cardiopulmonary findings. Patient and family at bedside updated on results. She was given a liter of fluids with improvement. Advised her to follow-up closely with her PCP and telecine operator and discussed strict ED return precautions. She and her family are agreeable to plan verbalized understanding. Discharged in stable condition. Lab Data 02/06/25 17:25 02/06/25 17:25 Labs: Lab Results 02/06/25 02/06/25 02/06/25 Range/Units 17:25 17:34 18:09 WBC 11.2 H (4.5-10.0) K/mm3 RBC 4.84 (4.2-5.4) M/mm3 Hgb 13.7 (12.0-15.0) g/dL Hct 43.5 (37.0-47.0) % MCV 89.9 (80-100) fl MCH 28.3 (26-34) pg MCHC 31.5 L (32-36) g/dl RDW 12.8 (11.5-14.5) % Plt Count 274 (150-375) k/mm3 MPV 10.5 H (7.4-10.4) fl Immature Gran % (Auto) 0.3 (0-0.5) % Neut % (Auto) 65.9 (45.5-73.1) % Lymph % (Auto) 23.5 (18.3-44.2) % Pima % (Auto) 7.8 (2.6-8.5) % Eos % (Auto) 2.1 (0-4.4) % Baso % (Auto) 0.4 (0.2-1.2) % Lymph # (Auto) 2.64 (0.9-3.2) K/mm3 Pima # (Auto) 0.9 H (0.1-0.6) K/mm3 Eos # (Auto) 0.2 (0-0.3) K/mm3 Baso # (Auto) 0.0 (0.0-0.1) K/mm3 Abs Immat Gran (auto) 0.03 (0.00-0.031) K/mm3 Absolute Neuts (auto) 7.4 H (1.3-6.7) K/mm3 Absolute Nucleated RBC 0.000 (0.0-0.012) K/mm3 Nucleated RBC % 0.0 (0.0-0.2) % PT 12.9 (11.1-14.7) Seconds INR 0.9 APTT 27.2 (22.3-36.8) Seconds D-Dimer 0.36 (<0.48) ug/mL Sodium 139 (137-145) mmol/L Potassium 3.7 (3.4-5.0) mmol/L Chloride 102 (98-107) mmol/L Carbon Dioxide 25 (22-30) mmol/L Anion Gap 12 (4-12) mmol/L BUN 10 (7-17) mg/dL Creatinine 0.47 L (0.7-1.0) mg/dL Estim Creat Clear Calc 183 ml/min Estimated GFR > 60 (59 - ) Glucose 83 (65-110) mg/dL Calcium 9.0 (8.4-10.2) mg/dL Magnesium 1.9 (1.6-2.3) mg/dL Total Bilirubin 0.3 (0.2-1.3) mg/dL AST 28 (14-36) U/L ALT 27 (6-35) U/L Alkaline Phosphatase 96 (38-126) U/L Troponin I < 0.012 (0.000-0.034) ng/mL NT-Pro-B Natriuret Pep 33 (19.9-100) pg/mL Total Protein 8.0 (6.3-8.2) g/dL Albumin 4.6 (3.5-5.1) g/dL TSH (Reflex) 1.680 (0.465-4.68) uIU/mL POC Urine HCG, Qual Negative (Negative) Discharge Plan Discharge Clinical Impression: Pre-syncope Patient Disposition: Home Condition: Stable Instructions: Antibiotic Form, Near Syncope (ED) Additional Instructions: You were evaluated in the emergency department after episodes of almost passing out. Your workup here is reassuring. Please get plenty of fluids and follow-up with your primary care provider and telecine operator. Return to the emergency department if you develop any new or worsening symptoms. Patient Language: Cambodian Prescriptions: No Action escitalopram oxalate 10 mg tablet 10 mg DIRECTED metoprolol succinate 25 mg tablet extended release 24 hr 25 mg PO DAILY clonazepam 1 mg tablet 1 mg PO DAILY Aurovela 24 Fe 1 mg-20 mcg (24)/75 mg (4) tablet 1 tablet PO DAILY Qty: 84 3RF Follow-up/Referrals: Dotty Townsend MD [Primary Care Provider] -
[2025-02-06] MEDS: SODIUM CHLORIDE 0.9% IV 1,000 ML 999 ML IV CONT (17:29)
[2025-02-06 17:31] LABS: Basophils Percent Auto 0.4 % (0.2-1.2); Eosinophils Absolute Auto 0.2 K/mm3 (0-0.3); Eosinophils Percent Auto 2.1 % (0-4.4); Hematocrit 43.5 % (37.0-47.0); Hemoglobin 13.7 g/dL (12.0-15.0); Immature Granulocyte Absolute 0.03 K/mm3 (0.00-0.031); Immature Granulocyte Percent A 0.3 % (0-0.5); Lymphocytes Absolute Auto 2.64 K/mm3 (0.9-3.2); Lymphocytes Percent Auto 23.5 % (18.3-44.2); Mean Corpuscular HGB Conc 31.5 g/dl (32-36); Mean Corpuscular Hemoglobin 28.3 pg (26-34); Mean Corpuscular Volume 89.9 fl (80-100); Mean Platelet Volume 10.5 fl (7.4-10.4); Monocytes Absolute Auto 0.9 K/mm3 (0.1-0.6); Monocytes Percent Auto 7.8 % (2.6-8.5); Neutrophils Absolute Auto 7.4 K/mm3 (1.3-6.7); Neutrophils Percent Auto 65.9 % (45.5-73.1); Platelet Count Result 274 k/mm3 (150-375); Red Blood Count 4.84 M/mm3 (4.2-5.4); Red Cell Distribution Width 12.8 % (11.5-14.5); White Blood Count 11.2 K/mm3 (4.5-10.0)
[2025-02-06 17:36] LABS: BEDSIDEPREGUCG Negative (Negative)
[2025-02-06 17:42] LABS: Alanine Aminotransferase 27 U/L (6-35); Albumin Level 4.6 g/dL (3.5-5.1); Alkaline Phosphatase 96 U/L (38-126); Anion Gap 12 mmol/L (4-12); Aspartate Amino Transferase 28 U/L (14-36); Bilirubin,Total 0.3 mg/dL (0.2-1.3); Blood Urea Nitrogen 10 mg/dL (7-17); Carbon Dioxide 25 mmol/L (22-30); Chloride 102 mmol/L (98-107); Estimated CRCL calculation 183 ml/min; Estimated Glomerular Filt Rate > 60; Glucose 83 mg/dL (65-110); Magnesium 1.9 mg/dL (1.6-2.3); Potassium 3.7 mmol/L (3.4-5.0); Sodium 139 mmol/L (137-145)
[2025-02-06 17:53] LABS: NT Pro B Type Natriuretic Pept 33 pg/mL (19.9-100); Troponin I < 0.012 ng/mL (0.000-0.034)
--- OUTSIDE RECORDS SUMMARY | 2025-02-06 18:11 | XMS_ITS | Referral Summary ---
Author Organization [facility] Address [facility] [place] [address] Care Team Providers Care Continuous Improvement Coach Name Role Phone Raffy Singh MD Primary Care Provider [phone] Allergies Active Allergy Reactions Criticality Noted Date [...] on file Legal Sex Female 5:00 AM AIR BRAKE OPERATOR Gender Identity Not on file Sexual Orientation Not on file Last Filed Vital Signs Vital Sign Reading Time Taken Comments Blood Pressure 129/60 08/22/2023 6:15 PM AIR BRAKE OPERATOR Pulse 103 08/22/2023 6:15 PM AIR BRAKE OPERATOR Temperature 36.9 C (98.4 F) 08/22/2023 3:30 PM AIR BRAKE OPERATOR Respiratory Rate 18 08/22/2023 6:15 PM AIR BRAKE OPERATOR Oxygen Saturation 98% 08/22/2023 6:15 PM AIR BRAKE OPERATOR Inhaled Oxygen Concentration - - Weight 89.9 kg (198 lb 3.1 oz) 08/22/2023 3:30 P M AIR BRAKE OPERATOR Height 167.6 cm (5' 6 ) 08/22/2023 3:30 PM AIR BRAKE OPERATOR Body Mass Index 31.99 08/22/2023 3:30 PM AIR BRAKE OPERATOR Plan of Treatment Not on file Insurance [facility] Care Teams Continuous Improvement Coach Relationship Specialty Start Date End Date Raffy Singh MD [address] [place] [address] PCP - General Pediatrics 12/25/21
--- OUTSIDE RECORDS SUMMARY | 2025-02-06 18:11 | XMS_ITS | Clinical Summary ---
Author Organization [facility] Address [address] [place] [address] Care Team Providers Care Transportation Maintenance Operator Name Role Phone Janae Sullivan MD Primary [...] SMEAR 2024 INFLUENZA VACCINE (#1) [address] [place] [address] MEDICAID Care Teams Transportation Maintenance Operator Relationship Specialty Start Date End Date Janae Sullivan MD [address] [place] [address] [place] [address] PCP - General Family Practice 05/25/23
--- OUTSIDE RECORDS SUMMARY | 2025-02-06 18:11 | XMS_ITS | CONTINUITY OF CARE DOCUMENT ---
Author Name wale echevarria Address Unknown Organization [facility] Address [address] [facility] [place] [address] Phone [phone] Care Team Providers Care Work Station Support Specialist Name Role Phone Abdon VAZQUEZ, Chris Unavailable Blayne Diaz MD Unavailable [phone] INSURANCE PROVIDERS Payer name Policy type / Coverage type Rosa red libertarian ID [facility] PLAN Medicaid [id number]
--- OUTSIDE RECORDS SUMMARY | 2025-02-06 18:11 | XMS_ITS | Clinical Summary ---
Author Organization [facility] Address [address] [place] [address] Care Team Providers Care Concrete Foreman Name Role Phone Raffy Singh MD Primary Care Provider [phone] Allergies Active Allergy Reactions Criticality Noted Date [...] on file Legal Sex Female 5:00 AM NAUMKEAG OPERATOR Gender Identity Not on file Sexual Orientation Not on file Obstetrics History Last Filed Vital Signs Vital Sign Reading Time Taken Comments Blood Pressure 129/60 08/22/2023 6:15 PM NAUMKEAG OPERATOR Pulse 103 08/22/2023 6:15 PM NAUMKEAG OPERATOR Temperature 36.9 C (98.4 F) 08/22/2023 3:30 PM NAUMKEAG OPERATOR Respiratory Rate 18 08/22/2023 6:15 PM NAUMKEAG OPERATOR Oxygen Saturation 98% 08/22/2023 6:15 PM NAUMKEAG OPERATOR Inhaled Oxygen Concentration - - Weight 89.9 kg (198 lb 3.1 oz) 08/22/2023 3:30 P M NAUMKEAG OPERATOR Height 167.6 cm (5' 6 ) 08/22/2023 3:30 PM NAUMKEAG OPERATOR Body Mass Index 31.99 08/22/2023 3:30 PM NAUMKEAG OPERATOR Plan of Treatment Health Maintenance Due Date [...] 04/30/2015 Meningococcal Vaccine Completed 07/14/2020, 015 Insurance [facility] Care Teams Concrete Foreman Relationship Specialty Start Date End Date Raffy Singh MD [address] [place] [address] (work) PCP - General Pediatrics 12/25/21
--- OUTSIDE RECORDS SUMMARY | 2025-02-06 18:11 | XMS_ITS | Clinical Summary ---
Author Organization [facility] Address [address] [place] [address] Care Team Providers Care Facilities And Grounds Director Name Role Phone Raffy Singh MD Primary Care Provider [phone] Allergies Active Allergy Reactions Criticality Noted Date Comments Penicillin V Hives 08/31/2021 Social History Tobacco Use Types Packs/Day Years Used Date Smoking Tobacco: Never Smokeless Tobacco: Never Alcohol Use Standard Drinks/Week Comments Never 0 (1 standard drink = 0.6 oz pur e alcohol) Comments No Sex and Gender Information Value Date Recorded Sex Assigned at Not on file Legal Sex Female 3:07 AM HAND IRONER Gender Identity Not on file Sexual Orientation Not on file Last Filed Vital Signs Vital Sign Reading Time Taken Comments Blood Pressure 135/64 09/01/2021 1:34 AM HAND IRONER Pulse 97 09/01/2021 1:34 AM HAND IRONER Temperature 36.6 C (97.8 F) 08/31/2021 8:45 PM HAND IRONER Respiratory Rate 18 09/01/2021 1:34 AM HAND IRONER Oxygen Saturation 99% 09/01/2021 1:34 AM HAND IRONER Inhaled Oxygen Concentration - - Weight 95.7 kg (211 lb) 08/31/2021 8:45 PM HAND IRONER Height 167.6 cm (5' 6 ) 08/31/2021 8:45 PM HAND IRONER Body Mass Index 34.06 08/31/2021 8:45 PM HAND IRONER Plan of Treatment Health Maintenance Due Date [...] to complete this topic Insurance Care Teams Facilities And Grounds Director Relationship Specialty Start Date End Date Raffy Singh MD [address] [place] [phone] PCP - General PEDIATRICS 08/31/21
--- OUTSIDE RECORDS SUMMARY | 2025-02-06 18:11 | XMS_ITS | Clinical Summary ---
Author Organization [facility] Address [address] [place] [address] Care Team Providers Care Shield Cleaner Name Role Phone Raffy Singh MD Primary Care Provider [phone] Raffy Singh MD Unavailable Source Comments [facility],non-owned Affiliates and Associated Physician Practices is amultiple site organization consisting of ambulatory clinics and hospital sitesin [place], [place], [place] and [place]. This disclosure is being madepursuant to the Care Everywhere program and may not contain all information available regarding this patient. Last updated 18.[facility] Allergies Active Allergy Reactions Criticality Noted Date [...] on file Legal Sex Female 5:42 AM MACHINING DEPARTMENT SUPERVISOR Gender Identity Not on file Sexual Orientation Not on file Last Filed Vital Signs Vital Sign Reading Time Taken Comments Blood Pressure 106/62 12/10/2016 9:47 AM MACHINING DEPARTMENT SUPERVISOR Pulse 113 12/10/2016 9:47 AM MACHINING DEPARTMENT SUPERVISOR Temperature 38.3 C (100.9 F) 12/10/2016 9:47 AM MACHINING DEPARTMENT SUPERVISOR Respiratory Rate 17 12/01/2016 7:11 PM MACHINING DEPARTMENT SUPERVISOR Oxygen Saturation 97% 12/10/2016 9:47 AM MACHINING DEPARTMENT SUPERVISOR Inhaled Oxygen Concentration - - Weight 72.6 kg (160 lb) 12/10/2016 9:47 AM MACHINING DEPARTMENT SUPERVISOR Height 165.1 cm (5' 5 ) 12/10/2016 9:47 AM MACHINING DEPARTMENT SUPERVISOR Body Mass Index 26.63 12/10/2016 9:47 AM MACHINING DEPARTMENT SUPERVISOR Plan of Treatment Health Maintenance Due Date [...] patient's age to complete this topic Insurance [facility] [employer] Care Teams Shield Cleaner Relationship Specialty Start Date End Date Raffy Singh MD [address] [place] [address] PCP - General Pediatrics 12/10/16 Raffy Singh MD [address] [place] [address] Pediatrics 12/10/16
--- OUTSIDE RECORDS SUMMARY | 2025-02-06 18:11 | XMS_ITS | Encounter Summary ---
Author Organization [facility] Address [address] [place] [address] Phone Care Team Providers Care It Consultant Name Role Phone Raffy Singh MD Primary Care Provider Encounter Details Date Type Department Care Team (Latest Contact Info) Description 05/25/2023 Orders Only [facility] Lili Khanna, ИВА[address] [facility] [address] [place], [place] [id number] Social History Tobacco Use Types Packs/Day Years Used Date Smoking Tobacco: Never Comments Unknown Sex and Gender Information Value Date Recorded Sex Assigned at Not on file Legal Sex Female 5:00 AM RATE CLERK PASSENGER Gender Identity Not on file Sexual Orientation [...] on filedocumented in this encounter Care Teams It Consultant Relationship Specialty Start Date End Date Raffy Singh MD [address] [place] [address] PCP - General Pediatrics 12/25/21 documented as of this encounter
--- OUTSIDE RECORDS SUMMARY | 2025-02-06 18:11 | XMS_ITS | Encounter Summary ---
Author Organization [facility] Address [address] [place] [address] Phone Care Team Providers Care Roofer Assistant Name Role Phone Raffy Singh MD Primary Care Provider [phone] Encounter Details Date Type Department Care Team (Latest Contact Info) Description 08/31/2021 Orders Only [facility] Scanning, Provider Social History Tobacco Use Types Packs/Day Years Used Date Smoking Tobacco: Never Assessed Comments Unknown Sex and Gender Information Value Date Recorded Sex Assigned at Not on file Legal Sex Female 5:00 AM COMBINATION MACHINE TOOL SETTER Gender Identity Not on file Sexual Orientation [...] on filedocumented in this encounter Care Teams Roofer Assistant Relationship Specialty Start Date End Date Raffy Singh MD [address] [place] [address] PCP - General Pediatrics 12/25/21 documented as of this encounter
[2025-02-06 18:26] LABS: INR 0.9; Prothrombin Time 12.9 Seconds (11.1-14.7)
[2025-02-06 18:27] LABS: Partial Thromboplastin Time 27.2 Seconds (22.3-36.8)
[2025-02-06 18:34] LABS: D Dimer 0.36 ug/mL (<0.48)
== END 2025-02-06 19:50 | disposition home or self-care (01) ==
PROVIDERS: Emergency Medicine; Emergency Provider Physician Assistant; PCP Family Medicine
DX: R55 Syncope and collapse (principal); A18.01 Tuberculosis of spine; J45.909 Unspecified asthma, uncomplicated
CPT/HCPCS: 36415; 71045; 80053; 81025; 83735; 83880; 84443; 84484; 85025; 85380; 85610; 85730; 93005; 96360; 96361; 99284; J7030